=== PATIENT | male | born 1940 | race Caucasian/White ===

== ENCOUNTER → 2020-09-10 12:37 | Outpatient (CLI) | payer MEDICARE, OTHER, SELFPAY ==
--- NOTE | ~2020-09-10 | US_ITS ---
Corrected Report Ordering Physician corrected 09/11/2020 TRACY EXAMINATION: US renal BI DATE: 09/10/2020 13:07 INDICATION: Acute renal injury. Elevated creatinine. TECHNIQUE: Multiple ultrasound grayscale images of the kidneys were obtained. COMPARISON: CT abdomen and pelvis as well as ultrasound, both dated 06/29/2018 FINDINGS: The right kidney measures 12.8 x 6.7 x 5.7 cm. The left kidney measures 11.9 x 5.3 x 5.2 cm. Bilateral mild increased renal cortical echogenicity consistent with medical renal disease. 2.9 cm anechoic exophytic lesion at the periphery of the upper pole of the right kidney which appears to communicate via an anechoic tract with the renal sinus. Differential would include simple cyst or calyceal diverticulum. 3.0 cm anechoic cyst at the upper pole of the left kidney. 10 mm hypoechoic lesion along the periphery of the lower pole of the left kidney most likely an additional cyst but too small to definitively characterize. There is no hydronephrosis in either kidney. No stones identified. The bladder is partially decompressed which limits evaluation. Near the bladder and the left lower quadrant is a 5.4 cm well-defined anechoic lesion which appears to correspond on the prior CT with the reservoir for a penile implant. IMPRESSION: 1. Mild increased bilateral renal cortical echogenicity consistent with medical renal disease. No hydronephrosis. 2. Bilateral anechoic renal cysts measuring 3.0 cm on the left and 2.9 cm on the right with additional 10 mm likely left renal cyst which is too small to definitively characterize. Reviewed, dictated and finalized at location A. MTDD IMPRESSION: 1. Mild increased bilateral renal cortical echogenicity consistent with medica l renal disease. No hydronephrosis. 2. Bilateral anechoic renal cysts measuring 3.0 cm on the left and 2.9 cm on th e right with additional 10 mm likely left renal cyst which is too small to defi nitively characterize.
== END ==
PROVIDERS: PCP Internal Medicine
DX: N17.9 Acute kidney failure, unspecified (principal)
CPT/HCPCS: 76775

== ENCOUNTER 2021-07-25 09:05 | Emergency (ER) | payer MEDICARE, SELFPAY ==
[2021-07-25 09:08] VITALS: BP 172/76; PULSE 97; RESP 18; TEMP 36.6; O2SAT 97
--- NOTE | 2021-07-25 10:04 | ED.GENADULT ---
HPI - General Adult General Chief complaint: Extremity Injury, Upper Stated complaint: ripped tendon in arm Time Seen by Provider: 07/25/21 09:25 Source: patient and family History of Present Illness HPI narrative: 80-year-old male presented emerged department for evaluation of left upper arm pain. Patient states that approximately 10 days ago he had onset of left arm pain but denies any incident of injury. Patient states that last night he began having increased pain and does have bruising of the left upper extremity. Patient is not on any blood thinners. Patient denies any falls or injuries. Patient does have a history of biceps tendon tear on the right. Related Data Allergies Allergy/AdvReac Type Severity Reaction Status Date / Time No Known Drug Allergies Allergy Unknown Verified 06/29/18 10:27 Review of Systems Review of Systems: CONSTITUTIONAL: Denies fever, chills, or sweats. EYES: Denies visual changes, redness, or discharge. ENT: Denies rhinorrhea, congestion, sore throat, or otalgia. CARDIOVASCULAR: Denies chest pain, palpitations, or edema. RESPIRATORY: Denies cough or dyspnea. GASTROINTESTINAL: Denies abdominal pain, nausea, vomiting, or diarrhea. GENITOURINARY: Denies dysuria or hematuria. SKIN: Denies rash or itching. MUSCULOSKELETAL: See HPI NEUROLOGIC: Denies headache, numbness, or weakness. Exam Narrative: APPEARANCE: Well appearing, no pain, no distress, well-nourished. HEAD: normocephalic, atraumatic. EYES: PERRLA/EOMI, conjunctivae clear. NECK: Supple. No adenopathy, no masses. RESPIRATORY: Airway patent, respirations nonlabored. Clear to auscultation bilaterally, no rales, rhonchi, wheezing. CARDIOVASCULAR: Regular rate and rhythm without murmurs rubs or gallops. ABDOMINAL: Soft, nontender, nondistended, normal bowel sounds MUSCULOSKELETAL: Left upper extremity ecchymosis and tenderness. Patient does still have flexion of the left arm. Biceps tendon is palpated NEURO: Alert. Cranial nerves II through XII intact. Good gait. Good coordination SKIN: Warm, dry. Normal Color PSYCHIATRIC: Normal affect/mood. Course Course Emergency Course: Case was discussed with Dr. Francisco and he will see the patient as outpatient. Patient was placed in a sling. Patient and are comfortable with the plan for discharge and follow-up. Vital Signs Vital signs: Vital Signs Temperature 97.8 F 07/25/21 09:08 Pulse Rate 97 07/25/21 09:08 Respiratory Rate 18 07/25/21 09:08 Blood Pressure 172/76 H 07/25/21 09:08 Pulse Oximetry 97 07/25/21 09:08 Temperature 97.8 F 07/25/21 09:08 Pulse Rate 97 07/25/21 09:08 Respiratory Rate 18 07/25/21 09:08 Blood Pressure 172/76 H 07/25/21 09:08 Pulse Oximetry 97 07/25/21 09:08 Medical Decision Making Vital Signs Vital Signs: Vital Signs Temperature 97.8 F 07/25/21 09:08 Pulse Rate 97 07/25/21 09:08 Respiratory Rate 18 07/25/21 09:08 Blood Pressure 172/76 H 07/25/21 09:08 Pulse Oximetry 97 07/25/21 09:08 Temperature 97.8 F 07/25/21 09:08 Pulse Rate 97 07/25/21 09:08 Respiratory Rate 18 07/25/21 09:08 Blood Pressure 172/76 H 07/25/21 09:08 Pulse Oximetry 97 07/25/21 09:08 Discharge Plan Discharge Clinical Impression: Biceps tendon tear Patient Disposition: Home, Self-Care Condition: Stable Instructions: Antibiotic Form, How to Use a Sling (ED) Additional Instructions: [place] for pain control. Sling for comfort. Have close follow-up with orthopedics. Take MiraLAX as directed to prevent constipation from the [place]. Prescriptions: New hydrocodone-acetaminophen 5-325 mg tablet 1 tablet PO Q8H PRN (Reason: pain) Qty: 10 RF: 0 Follow-up/Referrals: Lionel,Tobias Dan MD [Primary Care Provider] - Jeff Francisco MD [Physician] -
[2021-07-25] MEDS: HYDROcodone/acetaminophen (*CRX) 5-325 MG TABLET 1 TAB PO (10:53)
== END 2021-07-25 11:08 | disposition home or self-care (01) ==
PROVIDERS: Emergency Provider Emergency Medicine; PCP Internal Medicine
DX: S46.212A Strain of muscle, fascia and tendon of other parts of biceps, left arm, initial encounter (principal); X58.XXXA Exposure to other specified factors, initial encounter
CPT/HCPCS: 99283; A4565; A9270

== ENCOUNTER 2022-06-11 14:35 | Inpatient (IN) | payer MEDICARE, SELFPAY ==
[2022-06-11] VITALS (22 sets, daily range): BP systolic 100–178; BP diastolic 49–94; PULSE 85–114; RESP 15–29; TEMP 36.5–37.2; O2SAT 92–100
--- NOTE | ~2022-06-11 | CT_ITS ---
EXAMINATION: CTA chest PE protocol DATE: 06/11/2022 17:33 INDICATION: Shortness of breath and elevated d-dimer. TECHNIQUE: Computed tomography (CT) pulmonary angiogram of the chest was performed with 100 mL Omnipa que-350 intravenous contrast. Additional 3D reconstructions utilizing coronal maximum intensity proje ction (MIP) were performed. Automated exposure control and iterative reconstruction technique were em ployed. The dose-length product was 796.74 mGy-cm. COMPARISON: None FINDINGS: Diagnostic quality study with excellent contrast opacification of the pulmonary arteries. No pulmonar y embolism. There are few small calcified nodules in the left lower lobe A few splenic calcifications consistent with old granulomatous disease. Mild dependent atelectasis in the right lower lobe. No pn e[place], pulmonary edema or pleural effusion. Mild bronchial wall thickening. Heart size is normal. S mall amount of atherosclerotic coronary artery calcific a cyst. No pericardial effusion. Aortic valve calcific location. Thoracic aorta is normal in caliber with no dissection. No pathologically enlarge d thoracic lymphadenopathy. 1.8 cm left renal cyst. There are bridging osteophytes at multiple levels in the spine, consistent with diffuse idiopathic skeletal hyperostosis (DISH). IMPRESSION: 1. No pulmonary embolism. 2. Mild bronchial wall thickening without evident pneumonia which could be due to bronchitis or react dax airway disease/asthma. Reviewed, dictated and finalized at location A. NO WORKER IMPRESSION: 1. No pulmonary embolism. 2. Mild bronchial wall thickening without evident pneumonia which could be due to bronchitis or reactive airway disease/asthma.
--- NOTE | ~2022-06-11 | XR_ITS ---
EXAMINATION: XR chest 2V DATE: 06/11/2022 15:20 INDICATION: Shortness of breath TECHNIQUE: frontal and lateral views of the chest were obtained. COMPARISON: Chest radiograph dated 09/30/2017 FINDINGS: Patient is rotated slightly towards the right. The lungs remain clear with no focal airspace opacitie s, pulmonary edema, pleural effusion or pneumothorax. Heart size is normal. IMPRESSION: 1. No acute cardiopulmonary disease. Reviewed, dictated and finalized at location A. [place] WIRELESS ASSOCIATE
--- NOTE | ~2022-06-11 | US_ITS ---
EXAMINATION: US venous doppler [facility] DATE: 06/11/2022 17:48 INDICATION: Lower limb swelling TECHNIQUE: Grayscale ultrasound images without and with compression and Doppler ultrasound images of the bilateral lower extremity veins were obtained. COMPARISON: None. FINDINGS: The visualized portions of right common femoral vein, profunda (deep) femoral vein, femoral vein, pop liteal vein, posterior tibial veins, peroneal veins, gastrocnemius vein and greater saphenous vein ou tflow are patent. The visualized portions of left common femoral vein, profunda femoral vein, femoral vein, popliteal v ein, posterior tibial veins, peroneal veins, gastrocnemius vein and greater saphenous vein outflow ar e patent. IMPRESSION: 1. No deep venous thrombosis in either lower limb. Reviewed, dictated and finalized at location A. 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
--- NOTE | 2022-06-11 14:46 | ECG_ITS ---
Measurements Intervals [place] Rate: 84 P: 73 WI: 234 QRS: 10 QRSD: 96 T: 57 QT: 332 QTc: 393 Interpretive Statements SINUS RHYTHM WITH SINUS ARRHYTHMIA WITH FIRST DEGREE AV BLOCK BORDERLINE ECG NO PREVIOUS ECG AVAILABLE FOR COMPARISON Electronically Signed On 06-11-2022 15:01:15 FILM OR VIDEOTAPE EDITOR by Prashanth Doshi D.O.
[2022-06-11 15:06] LABS: Basophils Percent Auto 0.3 % (0.2-1.2); Eosinophils Absolute Auto 0.1 K/mm3 (0-0.3); Hematocrit 41.8 % (42.0-52.0); Hemoglobin 13.4 g/dL (14.0-18.0); Immature Granulocyte Percent A 1.2 % (0-0.5); Lymphocytes Absolute Auto 1.06 K/mm3 (0.9-3.2); Lymphocytes Percent Auto 12.2 % (18.3-44.2); Mean Corpuscular HGB Conc 32.1 g/dl (32-36); Mean Corpuscular Hemoglobin 29.4 pg (26-34); Mean Corpuscular Volume 91.7 fl (80-100); Mean Platelet Volume 9.2 fl (7.4-10.4); Monocytes Absolute Auto 1.5 K/mm3 (0.1-0.6); Monocytes Percent Auto 16.7 % (2.6-8.5); Neutrophils Percent Auto 68.6 % (45.5-73.1); Platelet Count Result 326 k/mm3 (150-375); Red Blood Count 4.56 M/mm3 (4.6-6.20); Red Cell Distribution Width 13.7 % (11.5-14.5); White Blood Count 8.7 K/mm3 (4.5-10.0)
--- NOTE | 2022-06-11 15:14 | ED.SOB ---
HPI - SOB/Dyspnea General Chief Complaint: Shortness of Breath/Dyspnea <Jeannie Baron PA-C - Last Filed: 06/11/22 18:36> Stated Complaint: cough/cold/congestion <SHASTA Singh Last Filed: 06/11/22 18:36> Time Seen by Provider: 06/11/22 14:47 <Jeannie Baron PA-C - Last Filed: 06/11/22 18:36> Source: patient and family <Jeannie Baron PA-C - Last Filed: 06/11/22 18:36> Mode of arrival: ambulatory <SHASTA Singh Last Filed: 06/11/22 18:36> Limitations: no limitations <Jeannie Baron PA-C - Last Filed: 06/11/22 18:36> History of Present Illness HPI Narrative: This is a 81 year old male that presents to the ER for shortness of breath ongoing since yesterday. Associated with wheezing and productive cough. Reports feeling achy and having some back pain yesterday. 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 Denies chest pain. <Jeannie Baron PA-C - Last Filed: 06/11/22 18:36> Related Data Home Medications: Home Medications Medication Instructions Recorded Confirmed abiraterone 250 mg tablet mg PO 06/11/22 amlodipine 2.5 mg tablet mg 06/11/22 carvedilol 12.5 mg tablet mg 06/11/22 insulin aspart U-100 100 unit/mL subcut 06/11/22 (3 mL) subcutaneous pen (Novolog FlexPen U-100 Insulin aspart) insulin glargine 100 unit/mL (3 unit subcut 06/11/22 mL) subcutaneous pen (Lantus Solostar U-100 Insulin) lisinopril 20 mg tablet mg 06/11/22 oxycodone 5 mg tablet mg 06/11/22 pantoprazole 40 mg tablet,delayed mg PO 06/11/22 release pravastatin 20 mg tablet mg 06/11/22 prednisone 5 mg tablet mg 06/11/22 sitagliptin phosphate 25 mg tablet mg 06/11/22 (Januvia) timolol maleate 0.5 % eye gel 06/11/22 forming solution <Jeannie Baron PA-C - Last Filed: 06/11/22 18:36> Allergies/Adverse Reactions: Allergies Allergy/AdvReac Type Severity Reaction Status Date / Time No Known Drug Allergies Allergy Unknown Other Verified 06/11/22 14:57 <Jeannie Baron PA-C - Last Filed: 06/11/22 18:36> Review of Systems Review of Systems: CONSTITUTIONAL: Denies fever ENT: Reports congestion CARDIOVASCULAR: Denies chest pain, palpitations RESPIRATORY: Reports cough and dyspnea. GASTROINTESTINAL: Denies abdominal pain, nausea, vomiting MUSCULOSKELETAL: Reports back pain, and myalgia. <Jeannie Baron PA-C - Last Filed: 06/11/22 18:36> All systems reviewed & are unremarkable except as noted in HPI and below <Jeannie Baron PA-C - Last Filed: 06/11/22 18:36> PMFSH Past Medical History Medical History: Medical History (Updated 06/11/22 @ 18:36 by Jeannie Baron PA-C) History of diabetes mellitus History of gastroesophageal reflux (GERD) History of hyperlipidemia History of hypertension History of prostate cancer <Jeannie Baron PA-C - Last Filed: 06/11/22 18:36> Social History Social History: Social History (Updated 06/11/22 @ 15:49 by Jeannie Baron PA-C) Smoking status: Current some day smoker <Jeannie Baron PA-C - Last Filed: 06/11/22 18:36> Exam Narrative: GENERAL: Well-appearing, well-nourished, and in no acute distress. HEAD: Normocephalic, atraumatic. EYES: EOMI. ENT: Nares clear, no rhinorrhea or epistaxis. Mucous membranes moist. Oropharynx without tonsillar hypertrophy exudate or other lesions. Bilateral TMs pearly samuel non-bulging NECK: Supple. No adenopathy or masses. CHEST: No respiratory distress. Diffuse expiratory wheezing. No rales or rhonchi HEART: Regular rate and rhythm. No murmur heard. Normal peripheral pulses. ABDOMEN: Soft, nontender, nondistended, normal active bowel sounds. EXTREMITIES: Normal range of motion. 1+ pitting edema to the bilateral lower extremities (R>L) SKIN: Warm, dry, no rash. NEURO: No focal deficits. Alert and oriented x3. PSYCH: Normal mood and affect <Jeannie Baron PA-C - Last Filed: 06/11/22 18:36> Course Course Em
[2022-06-11 15:34] LABS: Alanine Aminotransferase 20 U/L (6-50); Albumin Level 4.2 g/dL (3.5-5.1); Alkaline Phosphatase 122 U/L (38-126); Anion Gap 7 mmol/L (8-16); Aspartate Amino Transferase 24 U/L (17-59); Bilirubin,Total 0.7 mg/dL (0.2-1.3); Blood Urea Nitrogen 29 mg/dL (9-20); Calcium 9.4 mg/dL (8.4-10.2); Carbon Dioxide 29 mmol/L (22-30); Chloride 97 mmol/L (98-107); Estimated Glomerular Filt Rate 36; Glucose 96 mg/dL (65-110); Potassium 3.8 mmol/L (3.4-5.0); Sodium 133 mmol/L (137-145)
[2022-06-11 15:41] LABS: Influenza A QL RT-PCR Negative (Negative); Influenza B QL RT-PCR Negative (Negative); RSV RNA, RT-PCR Negative (Negative); SARS-CoV-2 RNA PCR Positive
[2022-06-11] MEDS: ALBUTEROL SULFATE NEB 2.5 MG/3 ML INH INHALATION ×2 (15:51→20:00)
[2022-06-11] MEDS: IPRATROPIUM BR 0.02% INH SOLN 0.5 MG/2.5 ML VIAL INHALATION ×2 (15:51→20:26)
[2022-06-11 15:56] LABS: Alveolar/Arterial O2 Gradient 40.6 mmHg; Base Excess ABG 4.2 mEq/l (+/-2.0); Fractional Inspired Oxygen 21 %; HCO3 ABG 28.5 mEq/l (22.0-26.0); Methemoglobin ABG 0.1 %THb (0-1.5); Oxygen Content ABG 17.3 %vol (16.0-22.0); Oxygen Saturation ABG 91.8 % (95.0-100.0); Oxyhemoglobin 90.4 % THb (90.0-100.0); PCO2 ABG 41.7 mmHg (35.0-45.0); PO2 ABG 59.2 mmHg (80.0-100.0); PO2 FiO2 Ratio Arterial Blood 2.82 %; Reduced Hemoglobin 8.5 %THb (0-5.0); Total Hemoglobin 13.6 g/dL (12.0-18.0); pH ABG 7.453 (7.350-7.450)
[2022-06-11 15:58] LABS: Modified Allen's Test Pass; Site Drawn LEFT RADIAL
[2022-06-11 16:15] LABS: Partial Thromboplastin Time 29.2 SECONDS (22.3-36.8)
[2022-06-11 16:30] LABS: D Dimer 0.59 ug/mL (<0.48)
[2022-06-11] MEDS: SODIUM CHLORIDE 0.9% IV 500 ML 999 ML IV CONT (18:16)
--- NOTE | 2022-06-11 19:19 | PC.NURSE ---
Assumed pt care from Claudia Frias RN. Attempted to call report. MARTIN Anderson currently getting report on her other pts.
--- NOTE | 2022-06-11 19:51 | PC.NURSE ---
Attempted to call report @ [phone]. Sat on hold for 8 minutes before attempting again.
[2022-06-11 20:35] LABS: Glucose Point of Care 121 mg/dl (65-105)
--- NOTE | 2022-06-11 23:45 | PM.IMHP ---
H&P: HPI History of Present Illness Date/Time: 06/11/22 23:45 Chief Complaint: Shortness of breath. Narrative: This is a pleasant 81-year-old gentleman with COPD, metastatic prostate cancer, paroxysmal atrial fibrillation, hyperlipidemia, and type 2 diabetes mellitus who presented to the emergency department from home for evaluation of shortness of breath. Patient provides the following history. He has not felt well for a couple of days with mild shortness of breath, wheezing, cough productive of clear phlegm, runny nose, generalized aches, and back discomfort. He has not had any sick contacts to his knowledge and he denies fever, chills, and sweats. Appetite has been okay and he denies nausea, vomiting, and diarrhea. He has not had chest or pleuritic pain. He was afebrile on arrival to the emergency department. Pertinent labs include a WBC count of 8.7, sodium 133, potassium 3.8, BUN 29, creatinine 1.80. He tested positive for COVID. CT of the chest showed no evidence of pulmonary embolism but did demonstrate mild bronchial wall thickening without evident pneumonia which could be due to bronchitis or reactive airway disease/asthma. Given his comorbidities and oxygen at the lower end of normal, he is being admitted in this setting for close monitoring as he is at higher risk for developing complications from COVID. Review of Systems Review of Systems: Twelve systems were reviewed and are negative except for as per HPI. 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 Code status: Full code. Smoking status: Former smoker Additional living arrangements comments: Lives with spouse in [place]. Additional occupation/education comments: Retired. Meds Home Medications and Allergies Home Medications Medication Instructions Recorded Confirmed Type hydrocodone 5 mg-acetaminophen 325 1 tablet PO Q8H PRN pain #10 tabs 07/25/21 06/11/22 Rx mg tablet abiraterone 250 mg tablet (Zytiga) See Rx Instructions .Route .COMPLEX 06/11/22 06/11/22 History amlodipine 2.5 mg tablet (Norvasc) 2.5 mg PO DAILY 06/11/22 06/11/22 History carvedilol 12.5 mg tablet 12.5 mg PO BID 06/11/22 06/11/22 History insulin aspart U-100 100 unit/mL See Protocol subcut TID 06/11/22 06/11/22 History (3 mL) subcutaneous pen (Novolog FlexPen U-100 Insulin aspart) insulin glargine 100 unit/mL (3 See Rx Instructions .Route .COMPLEX 06/11/22 06/11/22 History mL) subcutaneous pen (Lantus Solostar U-100 Insulin) lisinopril 20 mg tablet (Zestril) 20 mg PO DAILY 06/11/22 06/11/22 History oxycodone 5 mg tablet 5 mg PO PRN 06/11/22 06/11/22 History pantoprazole 40 mg tablet,delayed 40 mg PO DAILY 06/11/22 06/11/22 History release pravastatin 20 mg tablet 20 mg PO DAILY 06/11/22 06/11/22 History prednisone 5 mg tablet 5 mg PO DAILY 06/11/22 06/11/22 History sitagliptin phosphate 25 mg tablet 25 mg PO DAILY 06/11/22 06/11/22 History (Januvia) timolol maleate 0.5 % eye gel 1 drp EACH EYE BID 06/11/22 06/11/22 History forming solution Allergies Allergy/AdvReac Type Severity Reaction Status Date / Time No Known Drug Allergies Allergy Unknown Other Verified 06/11/22 14:57 Vital Signs Vital Signs - 24 hr 06/11/22 14:
[2022-06-12] VITALS (21 sets, daily range): BP systolic 130–165; BP diastolic 72–88; PULSE 67–97; RESP 14–20; TEMP 36.5–36.6; O2SAT 96–98; BMI 29.8
[2022-06-12] MEDS: REMDESIVIR 200 MG/NS 250 ML 200 MG/250 ML BAG 250 MG IVPB (01:30)
[2022-06-12] MEDS: SODIUM CHLORIDE 0.9% IV 1,000 ML 100 ML IV CONT (01:31)
[2022-06-12] MEDS: IPRATROPIUM BR 0.02% INH SOLN 0.5 MG/2.5 ML VIAL INHALATION ×3 (02:18→14:00)
[2022-06-12] MEDS: ALBUTEROL SULFATE NEB 2.5 MG/3 ML INH INHALATION ×3 (02:18→13:59)
[2022-06-12 05:27] LABS: Hematocrit 39.7 % (42.0-52.0); Hemoglobin 12.6 g/dL (14.0-18.0); Mean Corpuscular HGB Conc 31.7 g/dl (32-36); Mean Corpuscular Hemoglobin 28.8 pg (26-34); Mean Corpuscular Volume 90.6 fl (80-100); Mean Platelet Volume 9.1 fl (7.4-10.4); Platelet Count Result 280 k/mm3 (150-375); Red Blood Count 4.38 M/mm3 (4.6-6.20); Red Cell Distribution Width 13.5 % (11.5-14.5); White Blood Count 6.1 K/mm3 (4.5-10.0)
[2022-06-12 05:43] LABS: Alanine Aminotransferase 20 U/L (6-50); Albumin Level 3.6 g/dL (3.5-5.1); Alkaline Phosphatase 98 U/L (38-126); Anion Gap 7 mmol/L (8-16); Aspartate Amino Transferase 27 U/L (17-59); Bilirubin,Total 0.5 mg/dL (0.2-1.3); Blood Urea Nitrogen 33 mg/dL (9-20); Calcium 8.6 mg/dL (8.4-10.2); Carbon Dioxide 26 mmol/L (22-30); Chloride 97 mmol/L (98-107); Estimated CRCL calculation 30 ml/min; Estimated Glomerular Filt Rate 34; Glucose 191 mg/dL (65-110); Potassium 4.6 mmol/L (3.4-5.0); Sodium 130 mmol/L (137-145)
[2022-06-12 05:57] LABS: Hemoglobin A1C 8.4 % (<5.7)
[2022-06-12 08:53] LABS: Glucose Point of Care 212 mg/dl (65-105)
[2022-06-12] MEDS: INSULIN ASPART (*BKC) 100 UNITS/ML SUB-Q ×3 (09:13→17:17)
[2022-06-12] MEDS: ENOXAPARIN 40 MG/0.4 ML SYRINGE SUB-Q (09:14)
[2022-06-12] MEDS: carvediloL 12.5 MG TABLET PO ×2 (09:14→20:57)
[2022-06-12] MEDS: PRAVASTATIN SODIUM 20 MG TABLET PO (09:15)
[2022-06-12] MEDS: predniSONE 5 MG TABLET PO ×2 (09:18→17:15)
[2022-06-12] MEDS: INSULIN GLARGINE (*BKC) 100 UNITS/ML 28 UNITS SUB-Q (09:21)
[2022-06-12] MEDS: lisinopriL 20 MG TABLET PO (09:21)
[2022-06-12] MEDS: PANTOPRAZOLE 40 MG TABLET PO (09:21)
[2022-06-12 09:24] LABS: NT Pro B Type Natriuretic Pept 2220 pg/mL (19.9-100)
[2022-06-12] MEDS: TIMOLOL MALEATE XE 0.5% OPHTH GEL SOLN 5 ML BTL 1 DROP EACH EYE ×2 (09:32→20:57)
[2022-06-12] MEDS: amLODIPine BESYLATE 2.5 MG TABLET PO (09:32)
[2022-06-12 12:14] LABS: Glucose Point of Care 276 mg/dl (65-105)
--- NOTE | 2022-06-12 14:24 | PHAR ---
Home medication identified in Pharmacy Abiraterone 250mg tablets and returned to RN at Pharmacy window
--- NOTE | 2022-06-12 15:00 | P.PNIM_ITS ---
Progress Note: A&P Assessment and Plan (1) COVID-19: Code(s): U07.1 - COVID-19 Status: Acute Assessment and Plan: * presented to the emergency department for shortness of breath, wheezing, cough, and body aches * Chest xray showed no acute cardiopulmonary disease * CTA: no pulmonary embolism, mild bronchial wall thickening without PNA, indicating bronchitis or reactive airway disease * positive for COVID-19 * Requiring oxygen supplementation, wean to maintain saturation >90% * Continue dexamethasone and remdesivir * Continue scheduled bronchodilators * Weaned to room air (2) Chronic obstructive pulmonary disease: Code(s): J44.9 - Chronic obstructive pulmonary disease, unspecified Status: Acute Assessment and Plan: * HX of COPD * Active wheezing, shortness of breath, changes in cough and sputum * Covid positive * Most likely activated by COVID * Supplemental oxygen needs, wean to maintain saturation >90% * Appears to be in acute exacerbation * Continue neb treatments (3) Chronic kidney disease, stage 3: Code(s): N18.30 - Chronic kidney disease, stage 3 unspecified Status: Acute Assessment and Plan: * BUN/Cr elevated at 33/1.90 * Appears to most likely at his baseline * Baseline Creatinine is 1.70-1.90 * Continue to trend labs * Hold chlorthalidone for now * Avoid nephrotoxic medications * IV fluids given (4) Paroxysmal atrial fibrillation: Code(s): I48.0 - Paroxysmal atrial fibrillation Status: Acute Assessment and Plan: * HR stable and controlled * Continue carvedilol * ChadVas score is a 4 * Consider starting anticoagulation (5) Prostate cancer metastatic to bone: Code(s): C61 - Malignant neoplasm of prostate; C79.51 - Secondary malignant neoplasm of bone Status: Acute Assessment and Plan: * Stable * Continue home medications * Continue outpatient follow up (6) Hypertension: Code(s): I10 - Essential (primary) hypertension Status: Acute Assessment and Plan: * BP is 145/72 * Hold Chlorthalidone for now * Continue lisinopril, carvedilol, amlodipine * Trend BP * Adjust therapy as indicated (7) Type 2 diabetes mellitus: Code(s): E11.9 - Type 2 diabetes mellitus without complications Status: Acute Assessment and Plan: * Glucose is only 191 * resume basal insulin * sliding scale insulin * Accu-Cheks * hypoglycemic protocol * Trend glucose * adjust therapy as indicated Time Spent With Patient Time: 51 minutes Subjective Date/time seen: 06/12/22 15:00 Interval history: 06/12/22 1500 Patient stated that he is doing ok. he currently denies any chest pain, shortness of breath, nausea, and vomiting. Turned off his oxygen, informed the nurse to check SPO2 in 15 minute. Currently, he stated that he is feeling better. He denies any current problems with breathing or cough. 06/11/22? 23:45 This is a pleasant 81-year-old gentleman with COPD, metastatic prostate cancer, paroxysmal atrial fibrillation, hyperlipidemia, and type 2 diabetes mellitus who presented to the emergency department from
--- NOTE | 2022-06-12 15:00 | PM.IMPN ---
Progress Note: A&P Assessment and Plan (1) COVID-19: Code(s): U07.1 - COVID-19 Status: Acute Assessment and Plan: presented to the emergency department for shortness of breath, wheezing, cough, and body aches Chest xray showed no acute cardiopulmonary disease CTA: no pulmonary embolism, mild bronchial wall thickening without PNA, indicating bronchitis or reactive airway disease positive for COVID-19 Requiring oxygen supplementation, wean to maintain saturation >90% Continue dexamethasone and remdesivir Continue scheduled bronchodilators Weaned to room air (2) Chronic obstructive pulmonary disease: Code(s): J44.9 - Chronic obstructive pulmonary disease, unspecified Status: Acute Assessment and Plan: HX of COPD Active wheezing, shortness of breath, changes in cough and sputum Covid positive Most likely activated by COVID Supplemental oxygen needs, wean to maintain saturation >90% Appears to be in acute exacerbation Continue neb treatments (3) Chronic kidney disease, stage 3: Code(s): N18.30 - Chronic kidney disease, stage 3 unspecified Status: Acute Assessment and Plan: BUN/Cr elevated at 33/1.90 Appears to most likely at his baseline Baseline Creatinine is 1.70-1.90 Continue to trend labs Hold chlorthalidone for now Avoid nephrotoxic medications IV fluids given (4) Paroxysmal atrial fibrillation: Code(s): I48.0 - Paroxysmal atrial fibrillation Status: Acute Assessment and Plan: HR stable and controlled Continue carvedilol ChadVas score is a 4 Consider starting anticoagulation (5) Prostate cancer metastatic to bone: Code(s): C61 - Malignant neoplasm of prostate; C79.51 - Secondary malignant neoplasm of bone Status: Acute Assessment and Plan: Stable Continue home medications Continue outpatient follow up (6) Hypertension: Code(s): I10 - Essential (primary) hypertension Status: Acute Assessment and Plan: BP is 145/72 Hold Chlorthalidone for now Continue lisinopril, carvedilol, amlodipine Trend BP Adjust therapy as indicated (7) Type 2 diabetes mellitus: Code(s): E11.9 - Type 2 diabetes mellitus without complications Status: Acute Assessment and Plan: Glucose is only 191 resume basal insulin sliding scale insulin Accu-Cheks hypoglycemic protocol Trend glucose adjust therapy as indicated Time Spent With Patient Time: 51 minutes Subjective Date/time seen: 06/12/22 15:00 Interval history: 06/12/22 1500 Patient stated that he is doing ok. he currently denies any chest pain, shortness of breath, nausea, and vomiting. Turned off his oxygen, informed the nurse to check SPO2 in 15 minute. Currently, he stated that he is feeling better. He denies any current problems with breathing or cough. 06/11/22? 23:45 This is a pleasant 81-year-old gentleman with COPD, metastatic prostate cancer, paroxysmal atrial fibrillation, hyperlipidemia, and type 2 diabetes mellitus who presented to the emergency department from home for evaluation of shortness of breath. Patient provides the following history. He has not felt well for a couple of days with mild shortness of breath, wheezing, cough productive of clear phlegm, runny nose, generalized aches, and back discomfort. He has not had any sick contacts to his knowledge and he denies fever, chills, and sweats. Appetite has been okay and he denies nausea, vomiting, and diarrhea. He has not had chest or pleuritic pain. He was afebrile on arrival to the emergency department. Pertinent labs include a WBC count of 8.7, sodium 133, potassium 3.8, BUN 29, creatinine 1.80. He tested positive for COVID. CT of the chest showed no evidence of pulmonary embolism but did demonstrate
[2022-06-12 17:17] LABS: Glucose Point of Care 346 mg/dl (65-105)
[2022-06-12] MEDS: REMDESIVIR 100 MG/NS 250 ML 100 MG/250 ML BAG 250 MG IVPB (21:00)
[2022-06-12 21:27] LABS: Glucose Point of Care 320 mg/dl (65-105)
[2022-06-13] VITALS (11 sets, daily range): BP systolic 142–148; BP diastolic 66–72; PULSE 56–83; RESP 14–20; TEMP 36.7–36.8; O2SAT 94–97
[2022-06-13 05:43] LABS: Basophils Percent Auto 0.1 % (0.2-1.2); Hematocrit 36.1 % (42.0-52.0); Hemoglobin 11.8 g/dL (14.0-18.0); Immature Granulocyte Absolute 0.06 K/mm3 (0.00-0.031); Immature Granulocyte Percent A 0.6 % (0-0.5); Lymphocytes Absolute Auto 0.85 K/mm3 (0.9-3.2); Lymphocytes Percent Auto 8.4 % (18.3-44.2); Mean Corpuscular HGB Conc 32.7 g/dl (32-36); Mean Corpuscular Hemoglobin 28.8 pg (26-34); Mean Platelet Volume 9.6 fl (7.4-10.4); Monocytes Absolute Auto 0.8 K/mm3 (0.1-0.6); Monocytes Percent Auto 8.3 % (2.6-8.5); Neutrophils Absolute Auto 8.3 K/mm3 (1.3-6.7); Neutrophils Percent Auto 82.6 % (45.5-73.1); Platelet Count Result 301 k/mm3 (150-375); Red Cell Distribution Width 13.5 % (11.5-14.5); White Blood Count 10.1 K/mm3 (4.5-10.0)
[2022-06-13 05:55] LABS: Prothrombin Time 12.8 Seconds (11.1-14.7)
[2022-06-13] MEDS: carvediloL 12.5 MG TABLET PO (05:56)
[2022-06-13 06:06] LABS: Alanine Aminotransferase 21 U/L (6-50); Albumin Level 3.5 g/dL (3.5-5.1); Alkaline Phosphatase 94 U/L (38-126); Anion Gap 7 mmol/L (8-16); Aspartate Amino Transferase 24 U/L (17-59); Bilirubin,Total 0.4 mg/dL (0.2-1.3); Blood Urea Nitrogen 50 mg/dL (9-20); Calcium 8.3 mg/dL (8.4-10.2); Carbon Dioxide 25 mmol/L (22-30); Chloride 101 mmol/L (98-107); Estimated CRCL calculation 30 ml/min; Estimated Glomerular Filt Rate 34; Glucose 216 mg/dL (65-110); Magnesium 1.5 mg/dL (1.6-2.3); Sodium 133 mmol/L (137-145)
--- NOTE | 2022-06-13 07:36 | P.PNIM_ITS ---
Progress Note: A&P Assessment and Plan (1) COVID-19: Code(s): U07.1 - COVID-19 Status: Acute Assessment and Plan: * presented to the emergency department for shortness of breath, wheezing, cough, and body aches * Chest xray showed no acute cardiopulmonary disease * CTA: no pulmonary embolism, mild bronchial wall thickening without PNA, indicating bronchitis or reactive airway disease * positive for COVID-19 * Requiring oxygen supplementation, wean to maintain saturation >90% * Continue dexamethasone and remdesivir * Continue scheduled bronchodilators * Weaned to room air (2) Chronic obstructive pulmonary disease: Code(s): J44.9 - Chronic obstructive pulmonary disease, unspecified Status: Acute Assessment and Plan: * HX of COPD * Active wheezing, shortness of breath, changes in cough and sputum * Covid positive * Most likely activated by COVID * Supplemental oxygen needs, wean to maintain saturation >90% * Appears to be in acute exacerbation * Continue neb treatments (3) Chronic kidney disease, stage 3: Code(s): N18.30 - Chronic kidney disease, stage 3 unspecified Status: Acute Assessment and Plan: * BUN/Cr elevated at 50/1.90 * Appears to most likely at his baseline * Baseline Creatinine is 1.70-1.90 * Continue to trend labs * Hold chlorthalidone for now * Avoid nephrotoxic medications * IV fluids given (4) Paroxysmal atrial fibrillation: Code(s): I48.0 - Paroxysmal atrial fibrillation Status: Acute Assessment and Plan: * HR stable and controlled * Continue carvedilol * ChadVas score is a 4 * Consider starting anticoagulation (5) Prostate cancer metastatic to bone: Code(s): C61 - Malignant neoplasm of prostate; C79.51 - Secondary malignant neoplasm of bone Status: Acute Assessment and Plan: * Stable * Continue home medications * Continue outpatient follow up (6) Hypertension: Code(s): I10 - Essential (primary) hypertension Status: Acute Assessment and Plan: * BP is 145/72 * Hold Chlorthalidone for now * Continue lisinopril, carvedilol, amlodipine * Trend BP * Adjust therapy as indicated (7) Type 2 diabetes mellitus: Code(s): E11.9 - Type 2 diabetes mellitus without complications Status: Acute Assessment and Plan: * Glucose is only 216 * resume basal insulin * sliding scale insulin * Accu-Cheks * hypoglycemic protocol * Trend glucose * adjust therapy as indicated Time Spent With Patient Time: 48 minutes Time with patient: Greater than 35 minutes Subjective Date/time seen: 06/13/22 07:36 Interval history: 06/13/22 06/12/22 1500 Patient stated that he is doing ok. he currently denies any chest pain, shortness of breath, nausea, and vomiting. Turned off his oxygen, informed the nurse to check SPO2 in 15 minute. Currently, he stated that he is feeling better. He denies any current problems with breathing or cough. 06/11/22? 23:45 This is a pleasant 81-year-old gentleman with COPD, metastatic prostate cancer, paroxysmal atrial fibrillation, hyperlipidemia
--- NOTE | 2022-06-13 07:36 | PM.IMPN ---
Progress Note: A&P Assessment and Plan (1) COVID-19: Code(s): U07.1 - COVID-19 Status: Acute Assessment and Plan: presented to the emergency department for shortness of breath, wheezing, cough, and body aches Chest xray showed no acute cardiopulmonary disease CTA: no pulmonary embolism, mild bronchial wall thickening without PNA, indicating bronchitis or reactive airway disease positive for COVID-19 Requiring oxygen supplementation, wean to maintain saturation >90% Continue dexamethasone and remdesivir Continue scheduled bronchodilators Weaned to room air (2) Chronic obstructive pulmonary disease: Code(s): J44.9 - Chronic obstructive pulmonary disease, unspecified Status: Acute Assessment and Plan: HX of COPD Active wheezing, shortness of breath, changes in cough and sputum Covid positive Most likely activated by COVID Supplemental oxygen needs, wean to maintain saturation >90% Appears to be in acute exacerbation Continue neb treatments (3) Chronic kidney disease, stage 3: Code(s): N18.30 - Chronic kidney disease, stage 3 unspecified Status: Acute Assessment and Plan: BUN/Cr elevated at 50/1.90 Appears to most likely at his baseline Baseline Creatinine is 1.70-1.90 Continue to trend labs Hold chlorthalidone for now Avoid nephrotoxic medications IV fluids given (4) Paroxysmal atrial fibrillation: Code(s): I48.0 - Paroxysmal atrial fibrillation Status: Acute Assessment and Plan: HR stable and controlled Continue carvedilol ChadVas score is a 4 Consider starting anticoagulation (5) Prostate cancer metastatic to bone: Code(s): C61 - Malignant neoplasm of prostate; C79.51 - Secondary malignant neoplasm of bone Status: Acute Assessment and Plan: Stable Continue home medications Continue outpatient follow up (6) Hypertension: Code(s): I10 - Essential (primary) hypertension Status: Acute Assessment and Plan: BP is 145/72 Hold Chlorthalidone for now Continue lisinopril, carvedilol, amlodipine Trend BP Adjust therapy as indicated (7) Type 2 diabetes mellitus: Code(s): E11.9 - Type 2 diabetes mellitus without complications Status: Acute Assessment and Plan: Glucose is only 216 resume basal insulin sliding scale insulin Accu-Cheks hypoglycemic protocol Trend glucose adjust therapy as indicated Time Spent With Patient Time: 48 minutes Time with patient: Greater than 35 minutes Subjective Date/time seen: 06/13/22 07:36 Interval history: 06/13/22 06/12/22 1500 Patient stated that he is doing ok. he currently denies any chest pain, shortness of breath, nausea, and vomiting. Turned off his oxygen, informed the nurse to check SPO2 in 15 minute. Currently, he stated that he is feeling better. He denies any current problems with breathing or cough. 06/11/22? 23:45 This is a pleasant 81-year-old gentleman with COPD, metastatic prostate cancer, paroxysmal atrial fibrillation, hyperlipidemia, and type 2 diabetes mellitus who presented to the emergency department from home for evaluation of shortness of breath. Patient provides the following history. He has not felt well for a couple of days with mild shortness of breath, wheezing, cough productive of clear phlegm, runny nose, generalized aches, and back discomfort. He has not had any sick contacts to his knowledge and he denies fever, chills, and sweats. Appetite has been okay and he denies nausea, vomiting, and diarrhea. He has not had chest or pleuritic pain. He was afebrile on arrival to the emergency department. Pertinent labs include a WBC count of 8.7, sodium 133, potassium 3.8, BUN 29, creatinine 1.80. He tested positive for COVID. CT of the chest s
[2022-06-13 08:38] LABS: Glucose Point of Care 206 mg/dl (65-105)
[2022-06-13] MEDS: PANTOPRAZOLE 40 MG TABLET PO (09:48)
[2022-06-13] MEDS: INSULIN ASPART (*BKC) 100 UNITS/ML SUB-Q ×2 (09:48→12:34)
[2022-06-13] MEDS: PRAVASTATIN SODIUM 20 MG TABLET PO (09:48)
[2022-06-13] MEDS: lisinopriL 20 MG TABLET PO (09:48)
[2022-06-13] MEDS: ENOXAPARIN 40 MG/0.4 ML SYRINGE SUB-Q (09:49)
[2022-06-13] MEDS: MAGNESIUM SULF 2 GM/WATER 50ML 2 GM/50 ML BAG IVPB (09:49)
[2022-06-13] MEDS: INSULIN GLARGINE (*BKC) 100 UNITS/ML 28 UNITS SUB-Q (09:49)
[2022-06-13] MEDS: TIMOLOL MALEATE XE 0.5% OPHTH GEL SOLN 5 ML BTL 1 DROP EACH EYE (09:50)
[2022-06-13] MEDS: amLODIPine BESYLATE 2.5 MG TABLET PO (10:05)
[2022-06-13] MEDS: ALBUTEROL SULFATE NEB 2.5 MG/3 ML INH INHALATION ×2 (10:14→14:35)
[2022-06-13] MEDS: IPRATROPIUM BR 0.02% INH SOLN 0.5 MG/2.5 ML VIAL INHALATION ×2 (10:15→14:35)
[2022-06-13] MEDS: predniSONE 5 MG TABLET PO (10:51)
--- NOTE | 2022-06-13 11:15 | P.DS_ITS ---
DS: Admitting Diagnosis Discharge Date 06/13/22 1115 Admitting Diagnosis Bronchitis/COVID DS: Discharge Diagnosis Discharge Diagnosis (1) COVID-19: Code(s): U07.1 - COVID-19 Status: Acute Assessment and Plan: * presented to the emergency department for shortness of breath, wheezing, cou gh, and body aches * Chest xray showed no acute cardiopulmonary disease * CTA: no pulmonary embolism, mild bronchial wall thickening without PNA, indicating bronchitis or reactive airway disease * positive for COVID-19 * Requiring oxygen supplementation, wean to maintain saturation >90% * Continue dexamethasone and remdesivir * Continue scheduled bronchodilators * Weaned to room air (2) Chronic obstructive pulmonary disease: Code(s): J44.9 - Chronic obstructive pulmonary disease, unspecified Status: Acute Assessment and Plan: * HX of COPD * Active wheezing, shortness of breath, changes in cough and sputum * Covid positive * Most likely activated by COVID * Supplemental oxygen needs, wean to maintain saturation >90% * Appears to be in acute exacerbation * Continue neb treatments (3) Chronic kidney disease, stage 3: Code(s): N18.30 - Chronic kidney disease, stage 3 unspecified Status: Acute Assessment and Plan: * BUN/Cr elevated at 50/1.90 * Appears to most likely at his baseline * Baseline Creatinine is 1.70-1.90 * Continue to trend labs * Hold chlorthalidone for now * Avoid nephrotoxic medications * IV fluids given (4) Paroxysmal atrial fibrillation: Code(s): I48.0 - Paroxysmal atrial fibrillation Status: Acute Assessment and Plan: * HR stable and controlled * Continue carvedilol * ChadVas score is a 4 * Consider starting anticoagulation (5) Prostate cancer metastatic to bone: Code(s): C61 - Malignant neoplasm of prostate; C79.51 - Secondary malignant neoplasm of bone Status: Acute Assessment and Plan: * Stable * Continue home medications * Continue outpatient follow up (6) Hypertension: Code(s): I10 - Essential (primary) hypertension Status: Acute Assessment and Plan: * BP is 145/72 * Hold Chlorthalidone for now * Continue lisinopril, carvedilol, amlodipine * Trend BP * Adjust therapy as indicated (7) Type 2 diabetes mellitus: Code(s): E11.9 - Type 2 diabetes mellitus without complications Status: Acute Assessment and Plan: * Glucose is only 216 * resume basal insulin * sliding scale insulin * Accu-Cheks * hypoglycemic protocol * Trend glucose * adjust therapy as indicated DS: Summary Hospital Course Hospital Course: Patient is 81-year-old male with a past medical history of COPD, metastatic prostate cancer,, AFib, hyperlipidemia, diabetes who presented the ED for evaluation shortness of breath. Patient stated that he had originally started off with having diarrhea prior to coming to hospital however it did progress into shortness of breath with wheezing, cough, congestion and general aches. Patient stated that he is always a little wheezy however this time it was worse. Upon arrival it was noted that the patient tested
--- NOTE | 2022-06-13 11:15 | PM.DS ---
DS: Admitting Diagnosis Discharge Date 06/13/22 1115 Admitting Diagnosis Bronchitis/COVID DS: Discharge Diagnosis Discharge Diagnosis (1) COVID-19: Code(s): U07.1 - COVID-19 Status: Acute Assessment and Plan: presented to the emergency department for shortness of breath, wheezing, cough, and body aches Chest xray showed no acute cardiopulmonary disease CTA: no pulmonary embolism, mild bronchial wall thickening without PNA, indicating bronchitis or reactive airway disease positive for COVID-19 Requiring oxygen supplementation, wean to maintain saturation >90% Continue dexamethasone and remdesivir Continue scheduled bronchodilators Weaned to room air (2) Chronic obstructive pulmonary disease: Code(s): J44.9 - Chronic obstructive pulmonary disease, unspecified Status: Acute Assessment and Plan: HX of COPD Active wheezing, shortness of breath, changes in cough and sputum Covid positive Most likely activated by COVID Supplemental oxygen needs, wean to maintain saturation >90% Appears to be in acute exacerbation Continue neb treatments (3) Chronic kidney disease, stage 3: Code(s): N18.30 - Chronic kidney disease, stage 3 unspecified Status: Acute Assessment and Plan: BUN/Cr elevated at 50/1.90 Appears to most likely at his baseline Baseline Creatinine is 1.70-1.90 Continue to trend labs Hold chlorthalidone for now Avoid nephrotoxic medications IV fluids given (4) Paroxysmal atrial fibrillation: Code(s): I48.0 - Paroxysmal atrial fibrillation Status: Acute Assessment and Plan: HR stable and controlled Continue carvedilol ChadVas score is a 4 Consider starting anticoagulation (5) Prostate cancer metastatic to bone: Code(s): C61 - Malignant neoplasm of prostate; C79.51 - Secondary malignant neoplasm of bone Status: Acute Assessment and Plan: Stable Continue home medications Continue outpatient follow up (6) Hypertension: Code(s): I10 - Essential (primary) hypertension Status: Acute Assessment and Plan: BP is 145/72 Hold Chlorthalidone for now Continue lisinopril, carvedilol, amlodipine Trend BP Adjust therapy as indicated (7) Type 2 diabetes mellitus: Code(s): E11.9 - Type 2 diabetes mellitus without complications Status: Acute Assessment and Plan: Glucose is only 216 resume basal insulin sliding scale insulin Accu-Cheks hypoglycemic protocol Trend glucose adjust therapy as indicated DS: Summary Hospital Course Hospital Course: Patient is 81-year-old male with a past medical history of COPD, metastatic prostate cancer,, AFib, hyperlipidemia, diabetes who presented the ED for evaluation shortness of breath. Patient stated that he had originally started off with having diarrhea prior to coming to hospital however it did progress into shortness of breath with wheezing, cough, congestion and general aches. Patient stated that he is always a little wheezy however this time it was worse. Upon arrival it was noted that the patient tested positive for COVID. CT of the chest showed no evidence of pulmonary embolism but mild bronchial wall thickening without pneumonia however bronchitis was noted on the CT. Patient was given supplemental oxygen which has been weaned to room air at this time. Patient was started on remdesivir and dexamethasone. Patient has been able to stay off the oxygen for greater than 24 hours. Creatinine is stable at 1.9 which appears to be in his baseline. Patient denies any further chest pain, shortness a breath, nausea, vomiting, diarrhea or constipation. Patient stated that he feels he is back to baseline just a little bit on the weaker side. PT and OT did evaluate the patient and stated th
[2022-06-13 12:11] LABS: Glucose Point of Care 205 mg/dl (65-105)
== END 2022-06-13 16:10 | disposition home or self-care (01) | DRG 177 ==
LOC: ANHED 18:36 → ANH2MED 19:13
PROVIDERS: Emergency Medicine; Physician Assistant; Admitting Provider Chiropractor; Emergency Provider Physician Assistant; PCP Internal Medicine; Visit Provider Nurse Practitioner
DX: U07.1 COVID-19 (principal); J96.01 Acute respiratory failure with hypoxia; J44.1 Chronic obstructive pulmonary disease with (acute) exacerbation; C79.51 Secondary malignant neoplasm of bone; I12.9 Hypertensive chronic kidney disease with stage 1 through stage 4 chronic kidney disease, or unspecified chronic kidney disease; E11.22 Type 2 diabetes mellitus with diabetic chronic kidney disease; N18.30 Chronic kidney disease, stage 3 unspecified; C61 Malignant neoplasm of prostate; I48.0 Paroxysmal atrial fibrillation; E78.5 Hyperlipidemia, unspecified; K21.9 Gastro-esophageal reflux disease without esophagitis; Z87.891 Personal history of nicotine dependence
CPT/HCPCS: 36415; 36600; 71046; 71275; 80053; 82375; 82805; 82948; 83036; 83050; 83735; 83880; 85025; 85027; 85380; 85610; 85730; 87637; 93005; 93970; 94640; 96361; 96374; 96375; 97161; 99285; A9270; G0378; J0248; J1100; J1650; J1815; J3475; J7030; J7040; J7512; Q9967

== ENCOUNTER 2023-07-26 07:22 | Inpatient (IN) | payer MEDICARE, SELFPAY ==
[2023-07-26] VITALS (28 sets, daily range): BP systolic 92–189; BP diastolic 38–84; PULSE 70–103; RESP 14–28; TEMP 36.2–36.5; O2SAT 93–100; BMI 30.4; BMI 31.4
--- NOTE | ~2023-07-26 | US_ITS ---
EXAMINATION: US renal BI DATE: 07/26/2023 15:50 INDICATION: acute kidney injury TECHNIQUE: Multiple grayscale and Doppler ultrasound images of the kidneys were obtained. COMPARISON: 09/10/2020, 06/29/2018; CT abdomen pelvis 06/29/2018 FINDINGS: The right kidney measures 12.6 x 6.6 x 5.9 cm. The left kidney measures 11.9 x 6.1 x 5.0 cm. The kidn eys demonstrate mildly increased parenchymal echogenicity. 3.2 cm exophytic anechoic lesion at the pe riphery of the right lower pole, slightly lobular contour, slight increased through transmission, wit h anechoic tract that may connect to the renal sinus. 3.1 cm left upper pole cystic lesion, mildly lo bulated contour, increased through transmission. Previous described 10 mm left lower pole lesion is n ot identified. There is no hydronephrosis. The bladder is moderately distended, likely with considera ble wall thickening. IMPRESSION: Medical renal disease. 3.2 cm right upper pole cystic mass, may represent a proteinaceous cyst or calyceal diverticulum, dem onstrating slight interval growth. 3.1 cm left upper pole lesion likely representing a simple cyst. P reviously described 10 mm left lower pole lesion is not identified. Consider MRI of the kidneys witho ut and with contrast for definitive evaluation of the right renal mass and to exclude a left lower po le renal mass. Bladder findings suggestive of cystitis, correlate with urinalysis. Reviewed, dictated and finalized at location K. IMPRESSION: Medical renal disease. 3.2 cm right upper pole cystic mass, may represent a proteinaceous cyst or nicole ceal diverticulum, demonstrating slight interval growth. 3.1 cm left upper pole lesion likely representing a simple cyst. Previously described 10 mm left lowe r pole lesion is not identified. Consider MRI of the kidneys without and with c ontrast for definitive evaluation of the right renal mass and to exclude a left lower pole renal mass. Bladder findings suggestive of cystitis, correlate with urinalysis.
--- NOTE | ~2023-07-26 | XR_ITS ---
XR chest 1V portable 07/26/2023 08:41 Indication: Dyspnea Procedure: AP portable chest Comparison: No prior studies for comparison. Findings: Borderline heart size. Mild interstitial edema. Atypical pneumonia less favored. No pleural effusion or pneumothorax. No acute osseous abnormality. Impression: 1: Mild interstitial edema. Reviewed, dictated and finalized at location B. Impression: 1: Mild interstitial edema.
--- NOTE | ~2023-07-26 | CT_ITS ---
EXAMINATION: CTA chest PE protocol DATE: 07/26/2023 09:45 CDT INDICATION: Hypoxia TECHNIQUE: Computed tomographic angiography (CTA) of the chest was performed with 100 mL Omnipaque-35 0 intravenous contrast. The dose-length product was 769.37 mGy-cm. Maximum intensity projection 3D-re constructions of the aorta and other arteries were constructed by the technologist on a separate work station. COMPARISON: None. FINDINGS: No significant pleural or pericardial effusion. Heart size normal. No thoracic lymphadenopa thy. Mild atherosclerosis. Study technically adequate without evidence for pulmonary embolism. No end obronchial lesions. No pneumothorax. There is interlobular septal thickening peripherally, right grea ter than left. There are a few areas of subpleural groundglass opacification in the right lung. IMPRESSION: 1. No pulmonary embolism. 2: Groundglass opacities subpleural location of the right thorax with interlobular septal thickening. Considerations include mild edema, atypical pneumonia and chronic interstitial lung disease. Reviewed, dictated and finalized at location B. IMPRESSION: 1. No pulmonary embolism. 2: Groundglass opacities subpleural location of the right thorax with interlobu lar septal thickening. Considerations include mild edema, atypical pneumonia an d chronic interstitial lung disease.
--- NOTE | 2023-07-26 07:28 | ECG_ITS ---
SEE SCANNED COPY FOR CONFIRMED REPORT MTDD
--- NOTE | 2023-07-26 07:39 | ED.SOB ---
HPI - SOB/Dyspnea General Chief Complaint: Shortness of Breath/Dyspnea Stated Complaint: RESP DISTRESS Limitations: physical limitation History of Present Illness HPI Narrative: HPI limited due to patient's shortness of breath. This is an 82-year-old male, with history of diabetes, metastatic prostate cancer and COPD, brought in by EMS for dyspnea. The patient reportedly developed shortness of breath beginning this morning and that progressively worsened. On arrival, EMS reports patient was hypoxic to the 70s. He was placed on CPAP with gradual improvement. Patient denies pain complains only of shortness of breath. Related Data Home Medications Medication Instructions Recorded Confirmed abiraterone 250 mg tablet (Zytiga) 1,000 mg PO DAILY 06/11/22 07/26/23 amlodipine 2.5 mg tablet (Norvasc) 2.5 mg PO DAILY 06/11/22 07/26/23 carvedilol 12.5 mg tablet 25 mg PO BID 06/11/22 07/26/23 insulin aspart U-100 100 unit/mL See Protocol subcut TID 06/11/22 07/26/23 (3 mL) subcutaneous pen (Novolog FlexPen U-100 Insulin aspart) insulin glargine 100 unit/mL (3 See Rx Instructions .Route .COMPLEX 06/11/22 07/26/23 mL) subcutaneous pen (Lantus Solostar U-100 Insulin) lisinopril 20 mg tablet (Zestril) 30 mg PO DAILY 06/11/22 07/26/23 oxycodone 5 mg tablet 5 mg PO PRN PRN Pain 06/11/22 07/26/23 pantoprazole 40 mg tablet,delayed 40 mg PO DAILY 06/11/22 07/26/23 release pravastatin 20 mg tablet 20 mg PO DAILY 06/11/22 07/26/23 prednisone 5 mg tablet 5 mg PO BID 06/11/22 07/26/23 sitagliptin phosphate 25 mg tablet 25 mg PO DAILY 06/11/22 07/26/23 (Januvia) timolol maleate 0.5 % eye gel 1 drp EACH EYE BID 06/11/22 07/26/23 forming solution chlorthalidone 25 mg PO DAILY 06/12/22 07/26/23 Allergies Allergy/AdvReac Type Severity Reaction Status Date / Time No Known Drug Allergies Allergy Unknown Other Verified 07/26/23 07:43 Review of Systems Review of Systems: All systems reviewed & are unremarkable except as noted in HPI and below (HPI) PMFSH Past Medical History Medical History Chronic kidney disease, stage 3 Esophageal ulcer Gastroesophageal reflux disease Hyperlipidemia Hypertension Paroxysmal atrial fibrillation 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 Code status: Full code. Years smoked: 62 Smoking status: Current every day smoker Tobacco type: cigarettes Second hand tobacco smoke exposure: Yes Alcohol intake: current Drinks per week: 2 Substance use: current Substance use type: marijuana Last use: 07/22/2023 Do You Feel Safe in your Home?: Yes Lack of Transportation: No Lack of Food: Never True Current Housing: I Have Housing Concerned About Future Housing: No Difficulty Paying Gas/Electric Bills: No Difficulty Paying for Meds: No Currently Unemployed: No Education: Decline to Answer Difficulty w/ Childcare or Family Care: No Additional living arrangements comments: Lives with spouse in [place]. Additional occupation/education comments: Retired. Spiritual care concerns: No Exam Narrative: GENERAL: Well-developed, well-nourished, in moderate to severe respiratory distress HEAD: Normocephalic, atraumatic. EYES: PERRLA and EOMI. ENT: Nares clear, no rhinorrhea or epistaxis. Mucous membranes moist. Oropharynx without tonsillar hypertrophy exudate or other lesions. NECK: Supple. No JVD CHEST: Tachypneic, in mod
[2023-07-26 08:08] LABS: Alanine Aminotransferase 12 U/L (6-50); Alkaline Phosphatase 126 U/L (38-126); Anion Gap 8 mmol/L (4-12); Aspartate Amino Transferase 16 U/L (17-59); Bilirubin,Total 0.8 mg/dL (0.2-1.3); Blood Urea Nitrogen 42 mg/dL (9-20); Carbon Dioxide 25 mmol/L (22-30); Chloride 108 mmol/L (98-107); Estimated CRCL calculation 24 ml/min; Estimated Glomerular Filt Rate 23; Glucose 153 mg/dL (65-110); Potassium 4.1 mmol/L (3.4-5.0); Sodium 141 mmol/L (137-145)
[2023-07-26 08:08] LABS: Alveolar/Arterial O2 Gradient 139.6 mmHg; Base Excess ABG -3.6 mEq/l (+/-2.0); Device NON-INVASIVE VENT; Fractional Inspired Oxygen 60 %; HCO3 ABG 20.4 mEq/l (22.0-26.0); Modified Allen's Test Pass; Oxygen Content ABG 18.5 %vol (16.0-22.0); Oxygen Saturation ABG 99.6 % (95.0-100.0); Oxyhemoglobin 97.9 % THb (90.0-100.0); PCO2 ABG 33.8 mmHg (35.0-45.0); PO2 FiO2 Ratio Arterial Blood 4.18 %; Site Drawn RIGHT RADIAL; pH ABG 7.399 (7.350-7.450)
[2023-07-26 08:09] LABS: Non-Invasive Expiratory Pressure 7 CMH2O; Non-Invasive Inspiratory Pressure 14 CMH2O; Non-Invasive Vent Rate 16 /MIN
[2023-07-26 08:12] LABS: INR 0.9
[2023-07-26 08:13] LABS: Partial Thromboplastin Time 26.3 Seconds (22.3-36.8)
[2023-07-26 08:18] LABS: NT Pro B Type Natriuretic Pept 1210 pg/mL (19.9-100); Troponin I 0.019 ng/mL (0.000-0.034)
[2023-07-26 08:34] LABS: Basophils Absolute Auto 0.1 K/mm3 (0.0-0.1); Basophils Percent Auto 0.3 % (0.2-1.2); Eosinophils Absolute Auto 0.1 K/mm3 (0-0.3); Eosinophils Percent Auto 0.5 % (0-4.4); Hematocrit 39.9 % (42.0-52.0); Hemoglobin 12.3 g/dL (14.0-18.0); Immature Granulocyte Absolute 0.16 K/mm3 (0.00-0.031); Immature Granulocyte Percent A 0.9 % (0-0.5); Lymphocytes Absolute Auto 0.86 K/mm3 (0.9-3.2); Lymphocytes Percent Auto 5.1 % (18.3-44.2); Mean Corpuscular HGB Conc 30.8 g/dl (32-36); Mean Corpuscular Hemoglobin 28.8 pg (26-34); Mean Corpuscular Volume 93.4 fl (80-100); Mean Platelet Volume 10.1 fl (7.4-10.4); Monocytes Absolute Auto 0.7 K/mm3 (0.1-0.6); Monocytes Percent Auto 4.2 % (2.6-8.5); Neutrophils Absolute Auto 15.2 K/mm3 (1.3-6.7); Platelet Count Result 365 k/mm3 (150-375); Red Blood Count 4.27 M/mm3 (4.6-6.20); Red Cell Distribution Width 13.3 % (11.5-14.5)
[2023-07-26 08:52] LABS: Magnesium 1.7 mg/dL (1.6-2.3)
[2023-07-26] MEDS: SODIUM CHLORIDE 0.9% IV 1,000 ML 999 ML IV CONT (08:54)
--- NOTE | 2023-07-26 09:15 | PC.NURSE ---
Pt blood pressure dropped to 73/46 at 08:45 this RN and EDP went into pt room. This RN adjusted pt BP cuff and rechecked pt bp and got a reading of 75/38. This RN removed bp cuff and put a new cuff on the pt's Left arm and BP was 88/51. EDP gave VORB to start pt on 1L NS. 0859 Pt blood pressure 96/60 0904 Pt blood pressure 103/55 0910 Pt blood pressure 111/62
[2023-07-26] MEDS: CEFEPIME 1 GM/NS 50 ML 1 GM/50 ML BAG IVPB (09:51)
[2023-07-26] MEDS: DOXYCYCLINE HYCLATE 100 MG TABLET PO (09:53)
--- NOTE | 2023-07-26 10:36 | ECG_ITS ---
SEE SCANNED COPY FOR CONFIRMED REPORT MTDD
[2023-07-26 11:16] LABS: Troponin I 0.278 ng/mL (0.000-0.034)
[2023-07-26] MEDS: SODIUM CHLORIDE 0.9% IV 500 ML 999 ML IV CONT (11:23)
[2023-07-26 11:39] LABS: Glucose Point of Care 108 mg/dl (65-105)
--- NOTE | 2023-07-26 13:23 | ECG_ITS ---
SEE SCANNED COPY FOR CONFIRMED REPORT MTDD
--- NOTE | 2023-07-26 13:31 | PM.IMHP ---
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 The patient lives at home and at 2:30 a.m. in the morning woke up with shortness of breath and chills along with a cough and chest congestion unable to produce sputum. He denies any chest pain. The patient his COPD has been under control and he has not felt the need to take inhalers. He denies any sick contacts, has had 3 lb weight loss recently, denies orthopnea, admits to shortness of breath on exertion, denies lower extremity edema or abdominal swelling. [facility] demonstrated leukocytosis, serum creatinine 2.7, troponin 0.278, EKG without acute ischemia, BNP 1210, CTA of chest without PE right thorax ground-glass opacities in negative of pneumonia edema or interstitial lung disease. The patient arrived on a BiPAP and was normotensive. He was trialed on room air but desaturated and placed back on BiPAP however his blood pressure then dropped. De-escalated back to nasal cannula and upon evaluation he was saturating above 90% on 5 L high-flow nasal cannula. His blood pressure now 100/70 status post 1.5 L normal saline bolus. Administered doxycycline and cefepime. Review of Systems Review of Systems: All systems reviewed & are unremarkable except as noted in HPI and below (Subjective) [facility] Past Medical History Medical History Chronic kidney disease, stage 3 Esophageal ulcer Gastroesophageal reflux disease Hyperlipidemia Hypertension Paroxysmal atrial fibrillation 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 Code status: Full code. Smoking status: Former smoker Tobacco type: cigarettes Second hand tobacco smoke exposure: Yes Alcohol intake: former Substance use: former Lack of Transportation: No Lack of Food: Often True Current Housing: I Have Housing Concerned About Future Housing: No Difficulty Paying Gas/Electric Bills: No Difficulty Paying for Meds: No Currently Unemployed: No Education: Trade/Vocational Certificate Difficulty w/ Childcare or Family Care: No Additional living arrangements comments: Lives with spouse in [place]. Additional occupation/education comments: Retired. Spiritual care concerns: No Meds Home Medications and Allergies Home Medications Medication Instructions Recorded Confirmed Type hydrocodone 5 mg-acetaminophen 325 1 tablet PO Q8H PRN pain #10 tabs 07/25/21 07/26/23 Rx mg tablet abiraterone 250 mg tablet (Zytiga) 1,000 mg PO DAILY 06/11/22 07/26/23 History amlodipine 2.5 mg tablet (Norvasc) 2.5 mg PO DAILY 06/11/22 07/26/23 History carvedilol 12.5 mg tablet 25 mg PO BID 06/11/22 07/26/23 History insulin aspart U-100 100 unit/mL See Protocol subcut TID 06/11/22 07/26/23 History (3 mL) subcutaneous pen (Novolog FlexPen U-100 Insulin aspart) insulin glargine 100 unit/mL (3 See Rx Instructions .Route .COMPLEX 06/11/22 07/26/23 History mL) subcutaneous pen (Lantus Solostar U-100 Insulin) lisinopril 20 mg tablet (Zestril) 30 mg PO DEVORA
[2023-07-26 14:05] LABS: Troponin I 0.477 ng/mL (0.000-0.034)
[2023-07-26] MEDS: LEVALBUTEROL NEB 1.25 MG/3 ML INHALATION ×2 (14:39→19:51)
[2023-07-26] MEDS: IPRATROPIUM BR 0.02% INH SOLN 0.5 MG/2.5 ML VIAL INHALATION ×2 (14:39→19:51)
[2023-07-26] MEDS: ACETYLCYSTEINE 20% INHAL SOLN 800 MG/4 ML VIAL 200 MG INHALATION ×2 (14:39→19:51)
[2023-07-26] MEDS: guaiFENesin 12 HR 600 MG TABCR 1200 MG PO ×2 (15:25→20:41)
[2023-07-26 15:33] LABS: Appearance Urine Cloudy (Clear); Bacteria Urine None Seen /hpf; Bilirubin Urine Negative (Negative); Blood Urine 1+ (Negative); Color Urine Yellow (Yellow); Glucose Urine UA Negative (Negative); Ketones Urine Negative (Negative); Leukocyte Esterase Ur 2+ LEU/UL (Negative); Nitrate Urine Negative (Negative); Non Pathogenic Casts 0-2; Protein Urine 2+ mg/dL (Negative); Squamous Epithelial Cell Urine None Seen /hpf (Few); Urobilinogen Urine 0.2 mg/dL (<2.0); WBC Urine >100 /hpf (0-3)
[2023-07-26 15:36] LABS: Creatinine Urine 56.5 mg/dL
[2023-07-26 15:37] LABS: Add Urine Microscopic? YES
[2023-07-26 15:38] LABS: Sodium Urine Random 84 meq/L
[2023-07-26 15:59] LABS: Influenza A QL RT-PCR Negative (Negative); Influenza B QL RT-PCR Negative (Negative); RSV RNA, RT-PCR Negative (Negative); SARS-CoV-2 RNA PCR Negative (Negative)
[2023-07-26 16:02] LABS: Glucose Point of Care 92 mg/dl (65-105)
[2023-07-26 16:19] LABS: Eosinophil Urine Rare % (None Seen); Urine Eos QC 2nd Tech Confirmed
[2023-07-26] MEDS: INSULIN ASPART (*BKC) 100 UNITS/ML 8 UNITS SUB-Q (16:22)
[2023-07-26] MEDS: methylPREDNISolone SOD SUCC 125 MG VIAL 60 MG IV PUSH ×2 (16:25→23:29)
--- NOTE | 2023-07-26 16:44 | ADMGEN ---
This patient, Gal Johnston, was admitted to IMU Room 202-. Patient/family oriented to hospital policies and general routines including ID bracelet, bed and alarms, visiting hours, pain management, procedures, bathroom and other care routines, personal items, smoking policy, room service/diet, and visiting hours. Information on how to activate the Rapid Response Team has been discussed. Patient/Family are encouraged to report perceived risks to care and to ask questions if they do not understand what they are told or what they should do.
--- NOTE | 2023-07-26 18:06 | ECG_ITS ---
SEE SCANNED COPY FOR CONFIRMED REPORT MTDD
[2023-07-26 19:17] LABS: Troponin I 0.878 ng/mL (0.000-0.034)
[2023-07-26 20:27] LABS: Glucose Point of Care 27 mg/dl (65-105)
[2023-07-26] MEDS: DEXTROSE 50% 25 GM/50 ML SYRINGE IV PUSH (20:34)
[2023-07-26 20:46] LABS: Glucose Point of Care 170 mg/dl (65-105)
[2023-07-26] MEDS: DEXTROSE 5% 1,000 ML 1,000 ML 50 ML IV CONT (20:47)
[2023-07-26 21:47] LABS: Glucose Point of Care 119 mg/dl (65-105)
[2023-07-26 22:20] LABS: Troponin I 0.908 ng/mL (0.000-0.034)
[2023-07-26 22:45] LABS: Glucose Point of Care 120 mg/dl (65-105)
[2023-07-27] VITALS (29 sets, daily range): BP systolic 138–166; BP diastolic 60–80; PULSE 67–87; RESP 16–23; TEMP 35.9–36.6; O2SAT 95–100
[2023-07-27 00:54] LABS: Glucose Point of Care 148 mg/dl (65-105)
[2023-07-27] MEDS: ACETYLCYSTEINE 20% INHAL SOLN 800 MG/4 ML VIAL 200 MG INHALATION ×4 (01:47→20:57)
[2023-07-27] MEDS: LEVALBUTEROL NEB 1.25 MG/3 ML INHALATION ×4 (01:47→20:56)
[2023-07-27] MEDS: IPRATROPIUM BR 0.02% INH SOLN 0.5 MG/2.5 ML VIAL INHALATION ×4 (01:47→20:55)
[2023-07-27 04:17] LABS: Glucose Point of Care 189 mg/dl (65-105)
[2023-07-27 05:22] LABS: Hemoglobin 12.9 g/dL (14.0-18.0); Mean Corpuscular HGB Conc 30.7 g/dl (32-36); Mean Corpuscular Hemoglobin 28.8 pg (26-34); Mean Corpuscular Volume 93.8 fl (80-100); Platelet Count Result 338 k/mm3 (150-375); Red Blood Count 4.48 M/mm3 (4.6-6.20); Red Cell Distribution Width 13.5 % (11.5-14.5); White Blood Count 23.1 K/mm3 (4.5-10.0)
[2023-07-27 05:38] LABS: Anion Gap 14 mmol/L (4-12); Blood Urea Nitrogen 45 mg/dL (9-20); Calcium 9.4 mg/dL (8.4-10.2); Carbon Dioxide 19 mmol/L (22-30); Chloride 108 mmol/L (98-107); Estimated CRCL calculation 23 ml/min; Estimated Glomerular Filt Rate 23; Glucose 192 mg/dL (65-110); Potassium 4.4 mmol/L (3.4-5.0); Sodium 141 mmol/L (137-145)
[2023-07-27 05:46] LABS: Band Neutrophils Percent 3 % (0-6); Lymphocytes Absolute Manual 0.69 K/mm3 (1.1-4.5); Neutrophils Percent Manual 94 % (46-73); Total Cells Counted 100
[2023-07-27 05:47] LABS: Platelet Estimate Increased (Adequate); Schistocytes None Seen
--- NOTE | 2023-07-27 06:00 | ECHO_ITS ---
Patient Info Name: Gal Johnston Age: 82 years : 1940 Gender: Male Ht: 71 in Wt: 225 lbs BSA: 2.29 m2 HR: 84 bpm BP: 153 / 80 mmHg Heart Rhythm: Sinus Rhythm Technical Quality: Fair Exam Date: 07/27/2023 7:34 AM Exam Location: Echo Lab Patient Status: Inpatient Admit Date: 07/26/2023 Staff Ordering Physician: Myron Cantu MD [employer] Buyer: Verónica Magdaleno RDCS Attending Provider: Lc Tom MD Referring Physician: Pepe SCHMIDT; Exam Type: CA echo dop color flow w con Study Info Indications - pulmonary edema Complete two-dimensional, color flow and Doppler transthoracic echocardiogram is performed with contrast to opacify the left ventricle and to improve the deliniation of the left ventricle endocardial borders. Contrast/Agitated Saline Contrast/Ag. Saline: Definity Amount: 2.00 ml Administered By: Verónica Magdaleno RDCS Existing IV Access: Yes IV Access Condition: patent with no signs of infiltration Summary 1. Left ventricular chamber dimension is normal. 2. Left ventricular systolic function is normal, estimated at 60-65%. 3. There is mildly increased left ventricular wall thickness. 4. The left ventricular diastolic function is grade I diastolic dysfunction. 5. Right ventricular systolic function is normal. 6. There is moderate-severe aortic valve calcification. 7. There is moderate to severe aortic valve stenosis with a peak velocity of 304.01 cm/s, mean gradient of 19 mmHg, and aortic valve area of 0.93 cm2. Left Ventricle Left ventricular chamber dimension is normal. Left ventricular systolic function is normal, estimated at 60-65%. There is mildly increased left ventricular wall thickness. The left ventricular diastolic function is grade I diastolic dysfunction. Right Ventricle Right ventricular chamber dimension is normal. Right ventricular systolic function is normal. Left Atria Left atrial chamber dimension is normal. Right Atria Right atrial chamber dimension is normal. Atrial Septum Intact interatrial septum visualized by color flow imaging. Aortic Valve The aortic valve is not well visualized. There is moderate to severe aortic valve stenosis with a peak velocity of 304.01 cm/s, mean gradient of 19 mmHg, and aortic valve area of 0.93 cm2. There is no aortic valve regurgitation. There is moderate-severe aortic valve calcification. Pulmonic Valve The pulmonic valve is not well visualized. There is no pulmonic regurgitation. Mitral Valve There is trace mitral valve regurgitation. The mitral valve annulus is mildly calcified. Tricuspid Valve There is trace tricuspid valve regurgitation. Pericardium/Pleural There is no pericardial effusion. Inferior Vena Cava Normal inferior vena cava with >50% collapse upon inspiration consistent with normal right atrial pressure, 3 mmHg. Aorta The aortic root size at the sinus of Valsalva is normal. Left Ventricular Outflow Tract Name Value Normal LVOT 2D LVOT Diameter 2.24 cm LVOT Doppler LVOT Peak Gradient 2 mmHg LVOT Mean Gradient 1 mmHg LVOT VTI 16.72 cm
[2023-07-27 06:04] LABS: Procalcitonin 12.8 ng/mL
[2023-07-27] MEDS: methylPREDNISolone SOD SUCC 125 MG VIAL 60 MG IV PUSH (06:17)
--- NOTE | 2023-07-27 06:56 | PC.NURSE ---
Patient's blood glucose at 2023 resulted at 27. Patient diaphoretic and somnolent but answers questions appropriately. Dr. Ng notified and at bedside. Hypoglycemia protocol followed and 1/2 am D50 pushed. Blood glucose rechecked at 2044 and resulted at 170. Received orders to initiate D5W at 50 mL/hr and continue frequent accuchecks. Patient mental status improved. Tabitha updated on patient condition. Will continue to monitor.
[2023-07-27 08:12] LABS: Glucose Point of Care 222 mg/dl (65-105)
[2023-07-27] MEDS: PERFLUTREN LIPID MICROSPHERES 1.5 ML VIAL DILUTED TO 10 ML TOTAL VOLUME IV PUSH (08:12)
--- NOTE | 2023-07-27 09:27 | IVDEFINITY ---
Prior to administration of IV Definity the patient was educated on the risks and benefits of the imaging enhancing agent including potential adverse side effects. The patient verbalized understanding. Allergies were verified. No exclusion criteria were identified and at least one of the following inclusion criteria were met: 1) physician request, 2) patient technically difficult to image (per the [place] [employer] guidelines of two or more segments not discernable within the apical view), or 3) questionable left ventricular function. ?
[2023-07-27] MEDS: ENOXAPARIN 30 MG/0.3 ML SYRINGE SUB-Q (09:41)
[2023-07-27] MEDS: cefTRIAXone 2 GM/NS 100 ML 2 GM/100 ML BAG IVPB (09:41)
[2023-07-27] MEDS: guaiFENesin 12 HR 600 MG TABCR 1200 MG PO ×2 (09:41→20:36)
[2023-07-27] MEDS: INSULIN ASPART (*BKC) 100 UNITS/ML 8 UNITS SUB-Q ×2 (09:41→16:56)
[2023-07-27 10:51] LABS: Magnesium 1.7 mg/dL (1.6-2.3)
[2023-07-27] MEDS: AZITHROMYCIN 500 MG/NS 250 ML 500 MG/250 ML BAG 250 MG IVPB (10:55)
[2023-07-27] MEDS: carvediloL 12.5 MG TABLET 25 MG PO ×2 (11:06→20:36)
[2023-07-27] MEDS: amLODIPine BESYLATE 2.5 MG TABLET PO (11:06)
[2023-07-27] MEDS: lisinopriL 10 MG TABLET 30 MG PO (11:06)
[2023-07-27] MEDS: PANTOPRAZOLE 40 MG TABLET PO (11:07)
[2023-07-27 11:49] LABS: Glucose Point of Care 297 mg/dl (65-105)
--- NOTE | 2023-07-27 12:22 | P.PNIM_ITS ---
Progress Note: A&P Assessment and Plan (1) Chronic obstructive pulmonary disease: Code(s): J44.9 - Chronic obstructive pulmonary disease, unspecified Status: Acute (2) Paroxysmal atrial fibrillation: Code(s): I48.0 - Paroxysmal atrial fibrillation Status: Acute (3) Gastroesophageal reflux disease: Code(s): K21.9 - Gastro-esophageal reflux disease without esophagitis Status: Acute (4) Hyperlipidemia: Code(s): E78.5 - Hyperlipidemia, unspecified Status: Acute (5) Hypertension: Code(s): I10 - Essential (primary) hypertension Status: Acute (6) Type 2 diabetes mellitus: Code(s): E11.9 - Type 2 diabetes mellitus without complications Status: Acute (7) COPD exacerbation: Code(s): J44.1 - Chronic obstructive pulmonary disease with (acute) exacerbation Status: Acute (8) Acute respiratory failure with hypoxia: Code(s): J96.01 - Acute respiratory failure with hypoxia Status: Acute (9) Community acquired pneumonia: Code(s): J18.9 - Pneumonia, unspecified organism Status: Acute (10) A-fib: Code(s): I48.91 - Unspecified atrial fibrillation Status: Acute (11) Elevated troponin: Code(s): R79.89 - Other specified abnormal findings of blood chemistry Status: Acute (12) Pulmonary edema: Qualifiers: Chronicity: acute Qualified Code(s): J81.0 - Acute pulmonary edema Code(s): J81.1 - Chronic pulmonary edema Status: Acute (13) Acute on chronic renal failure: Code(s): N17.9 - Acute kidney failure, unspecified; N18.9 - Chronic kidney disease, unspecified Status: Acute (14) Non-STEMI (non-ST elevated myocardial infarction): Code(s): I21.4 - Non-ST elevation (NSTEMI) myocardial infarction Status: Acute Plan Acute respiratory failure multifocal secondary to pneumonia, COPD, and CHF exacerbation * Bronchodilators. * Chest CT: No PE/Ground glass opacities/mild edema, atypical pneumonia * incentive spirometry while awake. * sputum culture ordered * influenza/COVID/RSV negative * respiratory panel pending * Cefepime/doxycycline * supplemental oxygen therapy to maintain oxygen 92% weaned to 5L BIPAP in the ED * WBC trended up likely secondary to steroid administration in the ed. Sepsis without septic shock secondary to pneumonia with hypoxia * empiric IV antibiotic therapy * Two sets of blood cultures pending * urine cultures. Pending- * TTE pending * Chest x-ray atypical pneumonia vs edema * glucose monitoring and control Non-STEMI * Could be any ischemic demand due to underlying respiratory status with pneumonia * Denies chest pain worse with coughing likely secondary to pneumonia * serial troponins x3 q.6 hours upper trend repeat 0.908 follow-up troponin pending * EKG without ischemic changes q.6 hours noted AFib * cardiology consulted * Echocardiogram pending * continuous cardiac monitoring Acute Heart failure * New onset? * BNP 1210 * echo pending * CTA Pulmonary edema * cardiology consulted * IV Lasix b.i.d. * monitor renal function during diuresis * NO previous echocardiogram results * echocardiogram pending * EKG AFIB * Optimize Gregory inhibitors, beta-blockers * Daily weight. Acute on chronic renal failure * on Lasix monitor closely * nephrology consulted * Avoid nephrotoxic drugs. * Monitor antihypertensive drug therapy. * Avoid NSAIDs. * Routine CMP monitoring GFR.
--- NOTE | 2023-07-27 12:22 | PM.IMPN ---
Progress Note: A&P Assessment and Plan (1) Chronic obstructive pulmonary disease: Code(s): J44.9 - Chronic obstructive pulmonary disease, unspecified Status: Acute (2) Paroxysmal atrial fibrillation: Code(s): I48.0 - Paroxysmal atrial fibrillation Status: Acute (3) Gastroesophageal reflux disease: Code(s): K21.9 - Gastro-esophageal reflux disease without esophagitis Status: Acute (4) Hyperlipidemia: Code(s): E78.5 - Hyperlipidemia, unspecified Status: Acute (5) Hypertension: Code(s): I10 - Essential (primary) hypertension Status: Acute (6) Type 2 diabetes mellitus: Code(s): E11.9 - Type 2 diabetes mellitus without complications Status: Acute (7) COPD exacerbation: Code(s): J44.1 - Chronic obstructive pulmonary disease with (acute) exacerbation Status: Acute (8) Acute respiratory failure with hypoxia: Code(s): J96.01 - Acute respiratory failure with hypoxia Status: Acute (9) Community acquired pneumonia: Code(s): J18.9 - Pneumonia, unspecified organism Status: Acute (10) A-fib: Code(s): I48.91 - Unspecified atrial fibrillation Status: Acute (11) Elevated troponin: Code(s): R79.89 - Other specified abnormal findings of blood chemistry Status: Acute (12) Pulmonary edema: Qualifiers: Chronicity: acute Qualified Code(s): J81.0 - Acute pulmonary edema Code(s): J81.1 - Chronic pulmonary edema Status: Acute (13) Acute on chronic renal failure: Code(s): N17.9 - Acute kidney failure, unspecified; N18.9 - Chronic kidney disease, unspecified Status: Acute (14) Non-STEMI (non-ST elevated myocardial infarction): Code(s): I21.4 - Non-ST elevation (NSTEMI) myocardial infarction Status: Acute Plan Acute respiratory failure multifocal secondary to pneumonia, COPD, and CHF exacerbation Bronchodilators. Chest CT: No PE/Ground glass opacities/mild edema, atypical pneumonia incentive spirometry while awake. sputum culture ordered influenza/COVID/RSV negative respiratory panel pending Cefepime/doxycycline supplemental oxygen therapy to maintain oxygen 92% weaned to 5L BIPAP in the ED WBC trended up likely secondary to steroid administration in the ed. Sepsis without septic shock secondary to pneumonia with hypoxia empiric IV antibiotic therapy Two sets of blood cultures pending urine cultures. Pending- TTE pending Chest x-ray atypical pneumonia vs edema glucose monitoring and control Non-STEMI Could be any ischemic demand due to underlying respiratory status with pneumonia Denies chest pain worse with coughing likely secondary to pneumonia serial troponins x3 q.6 hours upper trend repeat 0.908 follow-up troponin pending EKG without ischemic changes q.6 hours noted AFib cardiology consulted Echocardiogram pending continuous cardiac monitoring Acute Heart failure New onset? BNP 1210 echo pending CTA Pulmonary edema cardiology consulted IV Lasix b.i.d. monitor renal function during diuresis NO previous echocardiogram results echocardiogram pending EKG AFIB Optimize Gregory inhibitors, beta-blockers Daily weight. Acute on chronic renal failure on Lasix monitor closely nephrology consulted Avoid nephrotoxic drugs. Monitor antihypertensive drug therapy. Avoid NSAIDs. Routine CMP monitoring GFR. Monitor electrolytes especially potassium. Antibiotic doses depending on creatinine clearance. Pharmacy does medications. Cr upward trend Diabetes Accu-Cheks a.c. HS sliding scale insulin Holding Januvia resume patient's home long-acting Hemoglobin A1c goal less than 7 pending lipid panel pending Diabetic diet Optimize Gregory inhibitors and statins. Watch for hypoglycemia/hypoglycemic protocol ordered HX AFIB: No AC HX of gastric ulcer bleed HX GERD: PPI resumed
[2023-07-27] MEDS: INSULIN ASPART (*BKC) 100 UNITS/ML SUB-Q ×2 (12:32→16:56)
[2023-07-27 13:13] LABS: Troponin I 0.268 ng/mL (0.000-0.034)
--- NOTE | 2023-07-27 13:32 | PM.CNCAR ---
Assessment and Plan Assessment and plan (1) Elevated troponin: Code(s): R79.89 - Other specified abnormal findings of blood chemistry Status: Acute Assessment and Plan: Troponin elevation with trend suggestive of possible myocardial ischemia, however, patient did not present with ischemic symptoms side from significant hypoxia, acute on chronic kidney injury, and relative hypotension for which he received IV fluids. He has been treated for pneumonia and is improving clinically. Despite this pattern I do not feel the patient is suffering from an acute plaque rupture or for NSTEMI yet this is most likely type 2 infarction demand ischemia. I recommend aspirin 81 mg daily along with continuation of pravastatin 20 mg at bedtime. Continue medical management for presumed underlying CAD. Noninvasive ischemic evaluation warranted but not at this time as patient needs to recover further. DVT prophylaxis. 2D echocardiogram pending. Will review when available. Further recommendation to follow. Reviewed outside medical records from [facility] with echocardiogram preserved EF mention of mild aortic stenosis mean gradient 15 mm Hg but no other descriptive terms. His murmur is not consistent with mild aortic stenosis however. Patient is quite ill with multiple comorbidities including acute kidney injury, acute hypoxic respiratory failure, atrial fibrillation, aortic stenosis, pneumonia with significant leukocytosis requiring significant O2 supplementation. Continue telemetry and close clinical observation. Patient elevated risk for complications. I spent 83 minutes in the care of this patient at bedside including examination, discussed with the patient and his , medical team, chart review, outside medical records, medical decision-making, and documentation. (2) Community acquired pneumonia: Code(s): J18.9 - Pneumonia, unspecified organism Status: Acute Assessment and Plan: Management per primary service. Continue O2 supplementation, wean as tolerated. Continue IV antibiotics and bronchodilator therapy. He remains on ceftriaxone IV as well as azithromycin. (3) Acute respiratory failure with hypoxia: Code(s): J96.01 - Acute respiratory failure with hypoxia Status: Acute Assessment and Plan: Wean O2 supplementation as above. Bronchodilator therapy as appropriate. Noninvasive positive-pressure ventilation as warranted. I do not feel patient is experiencing clinically significant decompensated heart failure at this time. Feel is reasonable to hold off on diuretic therapy for the time being and observe volume status. (4) A-fib: Code(s): I48.91 - Unspecified atrial fibrillation Status: Acute Assessment and Plan: Patient initially in AFib currently in sinus rhythm after admission. He has not been on systemic anticoagulation due to history of GI bleed. Outpatient consideration for left atrial appendage occlusion device will be warranted. May Initiate aspirin 81 mg daily as tolerated as he reports he has been taking in the past without difficulty. Monitor reading closely. Nonetheless I suspect he may be able to resume systemic anticoagulation, however, further workup with commentary by GI would be preferable given his history. Continue carvedilol 25 mg twice daily as BP tolerates. Off systemic anticoagulation patient remains at significant risk for embolic stroke secondary to paroxysmal atrial fibrillation and should be anticoagulated if possible. Nonetheless, this decision had been made long before his presentation that he should avoid systemic anticoagulation therefore options appear somewhat limited at this time. (5) Acute on chronic renal failure: Code(s): N17.9 - Acute kidney failure, unspecified; N18.9 - Chronic kidney disease, unspecified Status: Acute Assessment and Plan: Minimize nephrotoxic agents. Reduce lisinopril BP permitting if any further
--- NOTE | 2023-07-27 14:18 | PM.CNNEP ---
Assessment and Plan Assessment and plan (1) ALEA (acute kidney injury): Code(s): N17.9 - Acute kidney failure, unspecified Status: Acute Assessment and Plan: suspect due to several issues: relative hypotension on admission infection/early sepsis (pneumonia) hypoxia contrast exposure (although creatinine was already elevated prior to this intervention) LUCIANO-I + diuretic use prior to admission current diuretic therapy (for presumed element of CHF) renal ultrasound noted -- may need MRI when more stable given findings check urine studies and CPK hold lisinopril on IV diuretics - consider holding based on Cardiology recommendations follow repeat labs and UOP (2) Chronic kidney disease, stage IV (severe): Code(s): N18.4 - Chronic kidney disease, stage 4 (severe) Status: Chronic Assessment and Plan: baseline creatinine seems to run ~ 1.9 - 2.3mg/dl in the last year this causes him to fluctuate between CKD stage 3B and stage 4 last outpatient creatinine about a week ago was 2.21mg/dl (GFR 29) CKD likely secondary to HTN, diabetes, vascular disease, and age-related change follows with [facility] (3) Acute respiratory failure with hypoxia: Code(s): J96.01 - Acute respiratory failure with hypoxia Status: Acute Assessment and Plan: multifactorial etiology: pneumonia COPD CHF (?) early sepsis (?) continue supplemental oxygen bronchodilator therapy follow respiratory status closely (4) Community acquired pneumonia: Code(s): J18.9 - Pneumonia, unspecified organism Status: Acute Assessment and Plan: as noted by imaging studies on admission follow culture data on antibiotics (5) Chronic obstructive pulmonary disease: Code(s): J44.9 - Chronic obstructive pulmonary disease, unspecified Status: Acute Assessment and Plan: complicates #3 and #4 already on bronchodilators continue supportive therapy (6) Hypertension: Code(s): I10 - Essential (primary) hypertension Status: Chronic Assessment and Plan: reasonable control at this time off LUCIANO-I due to #1 follow trend of hemodynamics (7) Type 2 diabetes mellitus: Code(s): E11.9 - Type 2 diabetes mellitus without complications Status: Chronic Assessment and Plan: follow accu-cheks glycemic control per hospitalists Long extensive discussion (greater than 20 minutes) with the patient as well as at bedside regarding his worsened renal function since his admission to the hospital and the likelihood that this deterioration is likely secondary to his acute illness / acute medical problems with the hope that ongoing medical therapy will improve his overall condition and subsequently improve his renal function as well. They appeared to both voiced understanding. I will continue follow the patient with you while remains hospitalized and make further recommendations as deemed necessary. Thank you for allowing me to participate in the care of this patient. History of Present Illness Reason for Consult Consult date: 07/27/23 Reason for consult: acute renal failure (on chronic kidney disease) Chief Complaint Chief complaint: hypoxia respiratory failure History of Present Illness Narrative: The patient is an 82-year-old male with a past medical history as outlined below who presented to [facility] Emergency room with complaints of shortness of breath. On the day of admission, the patient apparently woke up around 230 in the morning with complaints of shortness of breath, chills, cough, and chest congestion. He denied any chest pain but he reports that despite his chest congestion, he is unable to cough up anything. He does have known COPD reports it has been under control and does not feel that his symptoms are related to that issue. His shortness of breath appears to be present both at
--- NOTE | 2023-07-27 14:18 | P.CONNP_ITS ---
Assessment and Plan Assessment and plan (1) ALEA (acute kidney injury): Code(s): N17.9 - Acute kidney failure, unspecified Status: Acute Assessment and Plan: * suspect due to several issues: * relative hypotension on admission * infection/early sepsis (pneumonia) * hypoxia * contrast exposure (although creatinine was already elevated prior to this intervention) * LUCIANO-I + diuretic use prior to admission * current diuretic therapy (for presumed element of CHF) * renal ultrasound noted -- may need MRI when more stable given findings * check urine studies and CPK * hold lisinopril * on IV diuretics - consider holding based on Cardiology recommendations * follow repeat labs and UOP (2) Chronic kidney disease, stage IV (severe): Code(s): N18.4 - Chronic kidney disease, stage 4 (severe) Status: Chronic Assessment and Plan: * baseline creatinine seems to run ~ 1.9 - 2.3mg/dl in the last year * this causes him to fluctuate between CKD stage 3B and stage 4 * last outpatient creatinine about a week ago was 2.21mg/dl (GFR 29) * CKD likely secondary to HTN, diabetes, vascular disease, and age-related change * follows with [facility] (3) Acute respiratory failure with hypoxia: Code(s): J96.01 - Acute respiratory failure with hypoxia Status: Acute Assessment and Plan: * multifactorial etiology: * pneumonia * COPD * CHF (?) * early sepsis (?) * continue supplemental oxygen * bronchodilator therapy * follow respiratory status closely (4) Community acquired pneumonia: Code(s): J18.9 - Pneumonia, unspecified organism Status: Acute Assessment and Plan: * as noted by imaging studies on admission * follow culture data * on antibiotics (5) Chronic obstructive pulmonary disease: Code(s): J44.9 - Chronic obstructive pulmonary disease, unspecified Status: Acute Assessment and Plan: * complicates #3 and #4 * already on bronchodilators * continue supportive therapy (6) Hypertension: Code(s): I10 - Essential (primary) hypertension Status: Chronic Assessment and Plan: * reasonable control at this time * off LUCIANO-I due to #1 * follow trend of hemodynamics (7) Type 2 diabetes mellitus: Code(s): E11.9 - Type 2 diabetes mellitus without complications Status: Chronic Assessment and Plan: * follow accu-cheks * glycemic control per hospitalists Long extensive discussion (greater than 20 minutes) with the patient as well as at bedside regarding his worsened renal function since his admission to the hospital and the likelihood that this deterioration is likely secondary to his acute illness / acute medical problems with the hope that ongoing medical therapy will improve his overall condition and subsequently improve his renal function as well. They appeared to both voiced understanding. I will continue follow the patient with you while remains hospitalized and make further recommendations as deemed necessary. Thank you for allowing me to participate in the care of this patient. History of Present Illness Reason for Consult Consult date: 07/27/23 Reason for consult: acute renal failure (on chronic kidney disease) Chief Complaint Chief complaint: hypoxia respiratory failure History of Present Illness Narrative: The patient is an 82-year-old male with a past medical history as outlined below who presented to [facility] Emergency room with complai
[2023-07-27 16:11] LABS: Glucose Point of Care 414 mg/dl (65-105)
[2023-07-27] MEDS: FUROSEMIDE INJ 40 MG/4 ML VIAL IV PUSH (16:56)
[2023-07-27] MEDS: TIMOLOL MALEATE XE 0.5% OPHTH GEL SOLN 5 ML BTL 1 DROP EACH EYE (16:57)
[2023-07-27 18:33] LABS: Glucose Point of Care 452 mg/dl (65-105)
[2023-07-27 20:32] LABS: Glucose Point of Care 437 mg/dl (65-105)
[2023-07-27] MEDS: INSULIN GLARGINE (*BKC) 100 UNITS/ML 26 UNITS SUB-Q (20:35)
[2023-07-27] MEDS: INSULIN HUMAN REGULAR (*BKC) 100 UNITS/ML SUB-Q (20:55)
--- NOTE | 2023-07-27 21:00 | PC.NURSE ---
Patient hyperglycemic this evening with a blood glucose of 437. Patient received 26 units of scheduled Lantus. Marlena Haynes NP, notified of elevated blood glucose and orders for 8 units of Regular Insulin SQ received and administered. Blood glucose rechecked an hour later at 2215 and resulted at 452. Marlena Haynes NP, notified of elevated blood glucose and patient received an additional 5 units of Regular Insulin SQ. Blood glucose rechecked approximately 1 hour later and resulted at 398. Orders received to administer 4 units of Insulin Novolog. Will continue to monitor.
[2023-07-27 21:04] LABS: Creatinine Urine 29.4 mg/dL; Total Protein Urine Random 15 mg/dL; Ur Ttl Prot Creatinine Ratio 0.51 mg/mg (0-0.20); Urea Random Urine 233 MG/DL
[2023-07-27 21:06] LABS: Sodium Urine Random 96 meq/L
[2023-07-27 22:21] LABS: Glucose Point of Care 450 mg/dl (65-105)
[2023-07-27] MEDS: INSULIN HUMAN REGULAR (*BKC) 100 UNITS/ML 8 UNITS SUB-Q (22:31)
[2023-07-28] VITALS (23 sets, daily range): BP systolic 107–169; BP diastolic 57–74; PULSE 63–79; RESP 18–20; TEMP 35.8–36.4; O2SAT 95–100
[2023-07-28] MEDS: INSULIN ASPART (*BKC) 100 UNITS/ML SUB-Q ×2 (00:06→11:42)
[2023-07-28 00:22] LABS: Glucose Point of Care 398 mg/dl (65-105)
[2023-07-28] MEDS: ACETYLCYSTEINE 20% INHAL SOLN 800 MG/4 ML VIAL 200 MG INHALATION ×2 (02:09→07:28)
[2023-07-28] MEDS: LEVALBUTEROL NEB 1.25 MG/3 ML INHALATION ×2 (02:09→07:27)
[2023-07-28] MEDS: IPRATROPIUM BR 0.02% INH SOLN 0.5 MG/2.5 ML VIAL INHALATION ×2 (02:09→07:27)
[2023-07-28 04:32] LABS: Hematocrit 33.6 % (42.0-52.0); Hemoglobin 10.7 g/dL (14.0-18.0); Mean Corpuscular HGB Conc 31.8 g/dl (32-36); Mean Corpuscular Hemoglobin 28.9 pg (26-34); Mean Corpuscular Volume 90.8 fl (80-100); Mean Platelet Volume 10.1 fl (7.4-10.4); Platelet Count Result 336 k/mm3 (150-375); Red Cell Distribution Width 13.5 % (11.5-14.5); White Blood Count 21.4 K/mm3 (4.5-10.0)
[2023-07-28 04:50] LABS: Hemoglobin A1C 7.7 % (<5.7)
[2023-07-28 04:53] LABS: Alanine Aminotransferase 15 U/L (6-50); Albumin Level 3.5 g/dL (3.5-5.1); Alkaline Phosphatase 102 U/L (38-126); Anion Gap 11 mmol/L (4-12); Aspartate Amino Transferase 17 U/L (17-59); Bilirubin,Total 0.4 mg/dL (0.2-1.3); Blood Urea Nitrogen 62 mg/dL (9-20); Calcium 9.1 mg/dL (8.4-10.2); Carbon Dioxide 18 mmol/L (22-30); Chloride 104 mmol/L (98-107); Cholesterol 157 mg/dL (0-200); Estimated CRCL calculation 22 ml/min; Estimated Glomerular Filt Rate 22; Glucose 203 mg/dL (65-110); HDL Direct 33 mg/dL; Potassium 3.8 mmol/L (3.4-5.0); Sodium 133 mmol/L (137-145); Triglycerides 247 mg/dL (<150)
[2023-07-28 04:58] LABS: LDL Cholesterol Direct 81 mg/dL
[2023-07-28 08:09] LABS: Glucose Point of Care 170 mg/dl (65-105)
[2023-07-28] MEDS: ENOXAPARIN 30 MG/0.3 ML SYRINGE SUB-Q (08:11)
[2023-07-28] MEDS: cefTRIAXone 2 GM/NS 100 ML 2 GM/100 ML BAG IVPB (08:11)
[2023-07-28] MEDS: PANTOPRAZOLE 40 MG TABLET PO (08:12)
[2023-07-28] MEDS: lisinopriL 10 MG TABLET 30 MG PO (08:12)
[2023-07-28] MEDS: guaiFENesin 12 HR 600 MG TABCR 1200 MG PO ×2 (08:12→20:42)
[2023-07-28] MEDS: carvediloL 12.5 MG TABLET 25 MG PO ×2 (08:12→20:40)
[2023-07-28] MEDS: amLODIPine BESYLATE 2.5 MG TABLET PO (08:12)
[2023-07-28] MEDS: TIMOLOL MALEATE XE 0.5% OPHTH GEL SOLN 5 ML BTL 1 DROP EACH EYE ×2 (08:12→16:57)
[2023-07-28] MEDS: FUROSEMIDE INJ 40 MG/4 ML VIAL IV PUSH (08:12)
[2023-07-28] MEDS: INSULIN ASPART (*BKC) 100 UNITS/ML 8 UNITS SUB-Q ×3 (08:13→16:56)
[2023-07-28] MEDS: AZITHROMYCIN 500 MG/NS 250 ML 500 MG/250 ML BAG 250 MG IVPB (09:01)
--- NOTE | 2023-07-28 10:31 | PM.PNCARD ---
Progress Note: A&P Assessment and Plan (1) Elevated troponin: Code(s): R79.89 - Other specified abnormal findings of blood chemistry Status: Acute Assessment and Plan: Troponin elevation with trend suggestive of possible myocardial ischemia, however, patient did not present with ischemic symptoms side from significant hypoxia, acute on chronic kidney injury, and relative hypotension for which he received IV fluids. He has been treated for pneumonia and is improving clinically. Despite this pattern I do not feel the patient is suffering from an acute plaque rupture or for NSTEMI yet this is most likely type 2 infarction demand ischemia. -continue aspirin 81 mg daily, pravastatin 20 mg at bedtime. Outpatient Lexiscan nuclear stress test in our office after discharge as discussed. Will set up follow-up to be seen within the next 2-4 weeks if he desires follow-up with our practice or he needs to follow up with his gis scientist as above. Will see patient on an as-needed basis. Please do not hesitate to contact me additional questions or concerns. (2) Community acquired pneumonia: Code(s): J18.9 - Pneumonia, unspecified organism Status: Acute Assessment and Plan: Management per primary service. Improving, weaned to room air. Continue IV antibiotics and bronchodilator therapy. He remains on ceftriaxone IV as well as azithromycin. Transition to oral antibiotics when appropriate. (3) Acute respiratory failure with hypoxia: Code(s): J96.01 - Acute respiratory failure with hypoxia Status: Acute Assessment and Plan: He has been weaned to room air. Bronchodilator therapy as appropriate. Continue to hold off on diuretic therapy. Patient is not decompensated heart failure present. (4) A-fib: Code(s): I48.91 - Unspecified atrial fibrillation Status: Acute Assessment and Plan: Patient initially in AFib currently in sinus rhythm after admission. He has not been on systemic anticoagulation due to history of GI bleed. Outpatient consideration for left atrial appendage occlusion device will be warranted. May Initiate aspirin 81 mg daily as tolerated as he reports he has been taking in the past without difficulty. Monitor reading closely. Nonetheless I suspect he may be able to resume systemic anticoagulation, however, further workup with commentary by GI would be preferable given his history. Continue carvedilol 25 mg twice daily as BP tolerates. Patient remains off systemic anticoagulation and is at significant risk for embolic stroke secondary to paroxysmal atrial fibrillation and should be anticoagulated if possible. If deemed appropriate by primary medicine service may consider Eliquis 2.5 mg twice daily. In that case would recommend discontinuation of aspirin to reduce bleeding risk. Will defer appropriate timing in this regard to the primary service. (5) Acute on chronic renal failure: Code(s): N17.9 - Acute kidney failure, unspecified; N18.9 - Chronic kidney disease, unspecified Status: Acute Assessment and Plan: Minimize nephrotoxic agents. Nephrology consultation noted. Appreciate their involvement. Nephrology advised to hold lisinopril. I had previously recommended stopping diuretic therapy. Discontinue Lasix and hold lisinopril. Monitor BP and renal function. (6) Aortic stenosis: Code(s): I35.0 - Nonrheumatic aortic (valve) stenosis Status: Acute Assessment and Plan: Exam suggestive of least moderate aortic stenosis. Will review 2D echocardiogram when available. Recent echocardiogram April 2019 for suggest mild aortic stenosis although exam suggests significantly greater severity. Patient otherwise appears to be asymptomatic in this regard. Recommendation to follow after review. Subjective Date/time seen: Date of service: 07/28/23 10:31 Interval history: Follow-up for elevated troponin, atrial fibrillation aortic jillian
[2023-07-28] MEDS: CEFEPIME 1 GM/NS 50 ML 1 GM/50 ML BAG IVPB ×2 (10:40→20:41)
[2023-07-28 10:45] LABS: Creatine Kinase 48 U/L (55-170)
[2023-07-28 11:21] LABS: Glucose Point of Care 220 mg/dl (65-105)
--- NOTE | 2023-07-28 12:28 | PM.IMPN ---
Progress Note: A&P Assessment and Plan (1) Chronic obstructive pulmonary disease: Code(s): J44.9 - Chronic obstructive pulmonary disease, unspecified Status: Acute (2) Paroxysmal atrial fibrillation: Code(s): I48.0 - Paroxysmal atrial fibrillation Status: Acute (3) Gastroesophageal reflux disease: Code(s): K21.9 - Gastro-esophageal reflux disease without esophagitis Status: Acute (4) Hyperlipidemia: Code(s): E78.5 - Hyperlipidemia, unspecified Status: Acute (5) Hypertension: Code(s): I10 - Essential (primary) hypertension Status: Acute (6) Type 2 diabetes mellitus: Code(s): E11.9 - Type 2 diabetes mellitus without complications Status: Acute (7) COPD exacerbation: Code(s): J44.1 - Chronic obstructive pulmonary disease with (acute) exacerbation Status: Acute (8) Acute respiratory failure with hypoxia: Code(s): J96.01 - Acute respiratory failure with hypoxia Status: Acute (9) Community acquired pneumonia: Code(s): J18.9 - Pneumonia, unspecified organism Status: Acute (10) Elevated troponin: Code(s): R79.89 - Other specified abnormal findings of blood chemistry Status: Acute (11) Pulmonary edema: Qualifiers: Chronicity: acute Qualified Code(s): J81.0 - Acute pulmonary edema Code(s): J81.1 - Chronic pulmonary edema Status: Acute (12) Acute on chronic renal failure: Code(s): N17.9 - Acute kidney failure, unspecified; N18.9 - Chronic kidney disease, unspecified Status: Acute (13) Non-STEMI (non-ST elevated myocardial infarction): Code(s): I21.4 - Non-ST elevation (NSTEMI) myocardial infarction Status: Acute (14) ALEA (acute kidney injury): Code(s): N17.9 - Acute kidney failure, unspecified Status: Acute (15) Chronic kidney disease, stage 3: Code(s): N18.30 - Chronic kidney disease, stage 3 unspecified Status: Acute (16) Bacteremia: Code(s): R78.81 - Bacteremia Status: Acute Plan 82-year-old male with PMH obesity, prior tobacco abuse, active marijuana abuse, COPD, 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 Acute respiratory failure multifocal secondary to pneumonia, COPD, and CHF exacerbation+Sepsis: Hypoxia has resolved CT chest showed ground-glass opacity/mild edema, atypical pneumonia Blood cultures positive for Gram-negative rods Will obtain another set of blood culture Blood pressure is stable Continue with bronchodilators Will switch to cefepime instead of ceftriaxone Continue with bronchodilators Await echocardiogram Await urine strep, Legionella antigen Elevated BNP, concern for heart failure Await echocardiogram 2. NSTEMI: Could be possible NSTEMI versus troponin elevation Appreciate cardiology help Await echocardiogram Continue with aspirin, pravastatin Plan for outpatient stress test once gets discharged 3. History of AFib: Not on anticoagulation due to history of gastric ulcer bleed 4. ALEA on CKD: Renal ultrasound negative for any obstructive etiology Appreciate Renal help Avoid nephrotoxins Recheck BMP in a.m. 5. Diabetes mellitus: Blood glucose checked t.i.d. a.c. and HS Hyperglycemia noted Holding home dose Januvia Continue with Lantus, bolus mealtime insulin along with sliding scale insulin Adjust dose of insulin as needed 6. Hypertension: Lisinopril on hold due to kidney dysfunction Continue with Norvasc, Coreg 7. DVT prophylaxis: Lovenox 8. Code status: Full 9. Disposition: Can transfer out of IMU to [facility] surgery with tele Time Spent With Patient Time with patient: 25 - 35 minutes Subjective Date/time seen: 07/28/23 12:28 Interval history: Yisel
--- NOTE | 2023-07-28 13:09 | PM.PNNEP ---
Progress Note: A&P Assessment and Plan (1) ALEA (acute kidney injury): Code(s): N17.9 - Acute kidney failure, unspecified Status: Acute Assessment and Plan: suspect due to several issues: relative hypotension on admission infection/early sepsis (pneumonia + bacteremia) hypoxia contrast exposure (although creatinine was already elevated prior to this intervention) LUCIANO-I + diuretic use prior to admission IV diuretic use (for presumed element of CHF) lisinopril on hold evaluation to date: renal ultrasound noted -- may need MRI when more stable given findings (can be done as an outpatient) urine eosinophil rare but this could represent inflammation urine electrolytes non-prerenal CPK low moderate proteinuria hold lisinopril follow repeat labs and UOP (2) Chronic kidney disease, stage IV (severe): Code(s): N18.4 - Chronic kidney disease, stage 4 (severe) Status: Chronic Assessment and Plan: baseline creatinine seems to run ~ 1.9 - 2.3mg/dl in the last year this causes him to fluctuate between CKD stage 3B and stage 4 last outpatient creatinine about a week ago was 2.21mg/dl (GFR 29) CKD likely secondary to HTN, diabetes, vascular disease, and age-related change follows with [facility] (3) Bacteremia: Code(s): R78.81 - Bacteremia Status: Acute Assessment and Plan: blood culture with E. coli urinary source?? admission UA suggestive of infection unfortunately, urine collection not collected on antibiotics follow repeat cultrues (4) Acute respiratory failure with hypoxia: Code(s): J96.01 - Acute respiratory failure with hypoxia Status: Acute Assessment and Plan: clinical improvement noted multifactorial etiology: pneumonia COPD CHF (?) early sepsis (?) continue supplemental oxygen PRN bronchodilator therapy follow respiratory status closely (5) Community acquired pneumonia: Code(s): J18.9 - Pneumonia, unspecified organism Status: Acute Assessment and Plan: as noted by imaging studies on admission follow culture data on antibiotics (6) Chronic obstructive pulmonary disease: Code(s): J44.9 - Chronic obstructive pulmonary disease, unspecified Status: Acute Assessment and Plan: complicates #4 and #5 already on bronchodilators continue supportive therapy (7) Hypertension: Code(s): I10 - Essential (primary) hypertension Status: Chronic Assessment and Plan: reasonable control at this time off LUCIANO-I due to #1 follow trend of hemodynamics (8) Type 2 diabetes mellitus: Code(s): E11.9 - Type 2 diabetes mellitus without complications Status: Chronic Assessment and Plan: follow accu-cheks glycemic control per hospitalists Will continue to follow Subjective Date/time seen: 07/28/23 13:09 Interval history: Follow-up for acute kidney injury/acute kidney failure on chronic kidney disease. Overall, he states he feels significantly better; breathing/respiratory status has improved and he has been weaned to room air; stable hemodynamics noted; renal function slightly worse but reasonable urine output; no apparent distress. Exam Narrative: General: elderly but WD/WN male in NAD Heart: normal S1 and S2; no rub Lungs: diminished throughout with a few wheezes noted Abdomen: soft, nontender, nondistended, positive bowel sounds Extremities: no cyanosis or clubbing; no edema Skin: warm and dry Objective Data Vital Signs Vital Signs: Vital Signs Temp Pulse Resp BP Pulse Ox O2 Del Method O2 Flow Rate 07/28/23 12:00 79 07/28/23 11:10 68 20 132/57 L 96 07/28/23 10:00 77 07/28/23 08:00 78 07/28/23 08:00 Room Air 07/28/23 08:19 97 Room Air 07/28/23 07:48 97.0 F L 64 20 169/74 H 100 07/28/23 07:41 67 18
--- NOTE | 2023-07-28 13:09 | P.PNNP_ITS ---
Progress Note: A&P Assessment and Plan (1) ALEA (acute kidney injury): Code(s): N17.9 - Acute kidney failure, unspecified Status: Acute Assessment and Plan: * suspect due to several issues: * relative hypotension on admission * infection/early sepsis (pneumonia + bacteremia) * hypoxia * contrast exposure (although creatinine was already elevated prior to this intervention) * LUCIANO-I + diuretic use prior to admission * IV diuretic use (for presumed element of CHF) * lisinopril on hold * evaluation to date: * renal ultrasound noted -- may need MRI when more stable given findings (can be done as an outpatient) * urine eosinophil rare but this could represent inflammation * urine electrolytes non-prerenal * CPK low * moderate proteinuria * hold lisinopril * follow repeat labs and UOP (2) Chronic kidney disease, stage IV (severe): Code(s): N18.4 - Chronic kidney disease, stage 4 (severe) Status: Chronic Assessment and Plan: * baseline creatinine seems to run ~ 1.9 - 2.3mg/dl in the last year * this causes him to fluctuate between CKD stage 3B and stage 4 * last outpatient creatinine about a week ago was 2.21mg/dl (GFR 29) * CKD likely secondary to HTN, diabetes, vascular disease, and age-related change * follows with [facility] (3) Bacteremia: Code(s): R78.81 - Bacteremia Status: Acute Assessment and Plan: * blood culture with E. coli * urinary source?? * admission UA suggestive of infection * unfortunately, urine collection not collected * on antibiotics * follow repeat cultrues (4) Acute respiratory failure with hypoxia: Code(s): J96.01 - Acute respiratory failure with hypoxia Status: Acute Assessment and Plan: * clinical improvement noted * multifactorial etiology: * pneumonia * COPD * CHF (?) * early sepsis (?) * continue supplemental oxygen PRN * bronchodilator therapy * follow respiratory status closely (5) Community acquired pneumonia: Code(s): J18.9 - Pneumonia, unspecified organism Status: Acute Assessment and Plan: * as noted by imaging studies on admission * follow culture data * on antibiotics (6) Chronic obstructive pulmonary disease: Code(s): J44.9 - Chronic obstructive pulmonary disease, unspecified Status: Acute Assessment and Plan: * complicates #4 and #5 * already on bronchodilators * continue supportive therapy (7) Hypertension: Code(s): I10 - Essential (primary) hypertension Status: Chronic Assessment and Plan: * reasonable control at this time * off LUCIANO-I due to #1 * follow trend of hemodynamics (8) Type 2 diabetes mellitus: Code(s): E11.9 - Type 2 diabetes mellitus without complications Status: Chronic Assessment and Plan: * follow accu-cheks * glycemic control per hospitalists Will continue to follow Subjective Date/time seen: 07/28/23 13:09 Interval history: Follow-up for acute kidney injury/acute kidney failure on chronic kidney disease. Overall, he states he feels significantly better; breathing/respiratory status has improved and he has been weaned to room air; stable hemodynamics noted; renal function slightly worse but reasonable urine output; no apparent distress. Exam Narrative: General: elderly but WD/WN male in NAD Heart: normal S1 and S2; no rub
--- NOTE | 2023-07-28 14:53 | PCCCNOTE ---
On 07/28/23, the student, [Dedra Kiran ], provided care and completed [facility] documentation on this patient. I have reviewed the student's documentation and agree with the findings.
[2023-07-28 15:57] LABS: Glucose Point of Care 125 mg/dl (65-105)
[2023-07-28 20:13] LABS: Glucose Point of Care 107 mg/dl (65-105)
[2023-07-29] VITALS (12 sets, daily range): BP systolic 100–138; BP diastolic 44–62; PULSE 55–78; RESP 16–20; TEMP 35.4–36.4; O2SAT 94–99
[2023-07-29 06:29] LABS: Hematocrit 34.4 % (42.0-52.0); Hemoglobin 10.9 g/dL (14.0-18.0); Mean Corpuscular HGB Conc 31.7 g/dl (32-36); Mean Corpuscular Hemoglobin 28.8 pg (26-34); Mean Corpuscular Volume 90.8 fl (80-100); Mean Platelet Volume 9.8 fl (7.4-10.4); Platelet Count Result 296 k/mm3 (150-375); Red Blood Count 3.79 M/mm3 (4.6-6.20); Red Cell Distribution Width 13.4 % (11.5-14.5); White Blood Count 13.4 K/mm3 (4.5-10.0)
[2023-07-29 06:42] LABS: Alanine Aminotransferase 15 U/L (6-50); Albumin Level 3.3 g/dL (3.5-5.1); Alkaline Phosphatase 98 U/L (38-126); Anion Gap 8 mmol/L (4-12); Aspartate Amino Transferase 17 U/L (17-59); Bilirubin,Total 0.5 mg/dL (0.2-1.3); Blood Urea Nitrogen 65 mg/dL (9-20); Calcium 9.1 mg/dL (8.4-10.2); Carbon Dioxide 22 mmol/L (22-30); Chloride 106 mmol/L (98-107); Estimated CRCL calculation 23 ml/min; Estimated Glomerular Filt Rate 23; Glucose 96 mg/dL (65-110); Potassium 3.4 mmol/L (3.4-5.0); Sodium 136 mmol/L (137-145)
--- NOTE | 2023-07-29 08:17 | PM.IMPN ---
Progress Note: A&P Assessment and Plan (1) Chronic obstructive pulmonary disease: Code(s): J44.9 - Chronic obstructive pulmonary disease, unspecified Status: Acute (2) Paroxysmal atrial fibrillation: Code(s): I48.0 - Paroxysmal atrial fibrillation Status: Acute (3) Gastroesophageal reflux disease: Code(s): K21.9 - Gastro-esophageal reflux disease without esophagitis Status: Acute (4) Hyperlipidemia: Code(s): E78.5 - Hyperlipidemia, unspecified Status: Acute (5) Hypertension: Code(s): I10 - Essential (primary) hypertension Status: Acute (6) Type 2 diabetes mellitus: Code(s): E11.9 - Type 2 diabetes mellitus without complications Status: Acute (7) COPD exacerbation: Code(s): J44.1 - Chronic obstructive pulmonary disease with (acute) exacerbation Status: Acute (8) Acute respiratory failure with hypoxia: Code(s): J96.01 - Acute respiratory failure with hypoxia Status: Acute (9) Community acquired pneumonia: Code(s): J18.9 - Pneumonia, unspecified organism Status: Acute (10) Elevated troponin: Code(s): R79.89 - Other specified abnormal findings of blood chemistry Status: Acute (11) Pulmonary edema: Qualifiers: Chronicity: acute Qualified Code(s): J81.0 - Acute pulmonary edema Code(s): J81.1 - Chronic pulmonary edema Status: Acute (12) Acute on chronic renal failure: Code(s): N17.9 - Acute kidney failure, unspecified; N18.9 - Chronic kidney disease, unspecified Status: Acute (13) Non-STEMI (non-ST elevated myocardial infarction): Code(s): I21.4 - Non-ST elevation (NSTEMI) myocardial infarction Status: Acute (14) ALEA (acute kidney injury): Code(s): N17.9 - Acute kidney failure, unspecified Status: Acute (15) Chronic kidney disease, stage 3: Code(s): N18.30 - Chronic kidney disease, stage 3 unspecified Status: Acute (16) Bacteremia: Code(s): R78.81 - Bacteremia Status: Acute Plan 82-year-old male with PMH obesity, prior tobacco abuse, active marijuana abuse, COPD, 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 Acute respiratory failure multifocal secondary to pneumonia, COPD, and CHF exacerbation+Sepsis: Hypoxia has resolved CT chest showed ground-glass opacity/mild edema, atypical pneumonia Blood cultures positive for Gram-negative rods Will obtain another set of blood culture Blood pressure is stable Continue with bronchodilators Will switch to cefepime instead of ceftriaxone Continue with bronchodilators Await echocardiogram Await urine strep, Legionella antigen Elevated BNP, concern for heart failure echocardiogram ? 1. Left ventricular chamber dimension is normal. ? 2. Left ventricular systolic function is normal, estimated at 60-65%. ? 3. There is mildly increased left ventricular wall thickness. ? 4. The left ventricular diastolic function is grade I diastolic dysfunction. ? 5. Right ventricular systolic function is normal. ? 6. There is moderate-severe aortic valve calcification. ? 7. There is moderate to severe aortic valve stenosis with a peak velocity of 304.01 cm/s, mean gradient of 19 mmHg, and aortic valve area of 0.93 cm2. 2. NSTEMI: Could be possible NSTEMI versus troponin elevation Appreciate cardiology help Await echocardiogram Continue with aspirin, pravastatin Plan for outpatient stress test once gets discharged 07/28 telemetry showed frequent PVCs potassium 3.4, follow magnesium level, provide potassium chloride 40 mg p.o. ship's engineer on board, follow recommendation 3. History of AFib: Not on anticoagulation due to history of gastric ulcer bleed 4. ALEA on CKD: Renal
[2023-07-29 08:38] LABS: Glucose Point of Care 131 mg/dl (65-105)
[2023-07-29] MEDS: carvediloL 12.5 MG TABLET 25 MG PO ×2 (09:13→21:08)
[2023-07-29] MEDS: AZITHROMYCIN 500 MG/NS 250 ML 500 MG/250 ML BAG 250 MG IVPB (09:13)
[2023-07-29] MEDS: CEFEPIME 1 GM/NS 50 ML 1 GM/50 ML BAG IVPB ×2 (09:13→21:08)
[2023-07-29] MEDS: PANTOPRAZOLE 40 MG TABLET PO (09:14)
[2023-07-29] MEDS: guaiFENesin 12 HR 600 MG TABCR 1200 MG PO ×2 (09:14→21:08)
[2023-07-29] MEDS: amLODIPine BESYLATE 2.5 MG TABLET PO (09:14)
[2023-07-29] MEDS: POTASSIUM CHLORIDE 20 MEQ PACKET (FOR LIQUID) 40 MEQ PO (09:15)
[2023-07-29 09:28] LABS: Magnesium 1.8 mg/dL (1.6-2.3)
[2023-07-29] MEDS: ENOXAPARIN 30 MG/0.3 ML SYRINGE SUB-Q (09:47)
[2023-07-29] MEDS: TIMOLOL MALEATE XE 0.5% OPHTH GEL SOLN 5 ML BTL 1 DROP EACH EYE ×2 (09:47→17:25)
[2023-07-29] MEDS: INSULIN ASPART (*BKC) 100 UNITS/ML 8 UNITS SUB-Q (09:49)
--- NOTE | 2023-07-29 10:20 | PM.PNNEP ---
Progress Note: A&P Assessment and Plan (1) ALEA (acute kidney injury): Code(s): N17.9 - Acute kidney failure, unspecified Status: Acute Assessment and Plan: suspect due to several issues: relative hypotension on admission infection/early sepsis (pneumonia + bacteremia) hypoxia contrast exposure (although creatinine was already elevated prior to this intervention) LUCIANO-I + diuretic use prior to admission IV diuretic use (for presumed element of CHF) lisinopril on hold evaluation to date: renal ultrasound noted -- may need MRI when more stable given findings (can be done as an outpatient) urine eosinophil rare but this could represent inflammation urine electrolytes non-prerenal CPK low moderate proteinuria hold lisinopril follow repeat labs and UOP (2) Chronic kidney disease, stage IV (severe): Code(s): N18.4 - Chronic kidney disease, stage 4 (severe) Status: Chronic Assessment and Plan: baseline creatinine seems to run ~ 1.9 - 2.3mg/dl in the last year this causes him to fluctuate between CKD stage 3B and stage 4 last outpatient creatinine about a week ago was 2.21mg/dl (GFR 29) CKD likely secondary to HTN, diabetes, vascular disease, and age-related change follows with [facility] (3) Bacteremia: Code(s): R78.81 - Bacteremia Status: Acute Assessment and Plan: blood culture with E. coli urinary source?? admission UA suggestive of infection unfortunately, urine culture never done on antibiotics follow repeat cultures (so far negative) (4) Acute respiratory failure with hypoxia: Code(s): J96.01 - Acute respiratory failure with hypoxia Status: Acute Assessment and Plan: clinical improvement noted multifactorial etiology: pneumonia COPD CHF (?) early sepsis (?) continue supplemental oxygen PRN bronchodilator therapy follow respiratory status closely (5) Community acquired pneumonia: Code(s): J18.9 - Pneumonia, unspecified organism Status: Acute Assessment and Plan: as noted by imaging studies on admission follow culture data on antibiotics (6) Chronic obstructive pulmonary disease: Code(s): J44.9 - Chronic obstructive pulmonary disease, unspecified Status: Acute Assessment and Plan: complicates #4 and #5 already on bronchodilators continue supportive therapy (7) Hypertension: Code(s): I10 - Essential (primary) hypertension Status: Chronic Assessment and Plan: reasonable control at this time off LUCIANO-I due to #1 follow trend of hemodynamics (8) Type 2 diabetes mellitus: Code(s): E11.9 - Type 2 diabetes mellitus without complications Status: Chronic Assessment and Plan: follow accu-cheks glycemic control per hospitalists Will continue to follow Subjective Date/time seen: 07/29/23 10:20 Interval history: Follow-up for acute kidney injury/acute renal failure on chronic kidney disease. Continues to make slow and steady improvement in general; breathing/respiratory status continue to slowly improve with current therapy; renal function about the same and continues to make reasonable urine output; no issues/events overnight or earlier this morning. Exam Narrative: General: elderly but WD/WN male in NAD Heart: normal S1 and S2; no rub Lungs: diminished throughout with a few wheezes noted Abdomen: soft, nontender, nondistended, positive bowel sounds Extremities: no cyanosis or clubbing; no edema Skin: warm and intact Objective Data Vital Signs Vital Signs: Vital Signs Temp Pulse Resp BP Pulse Ox O2 Del Method 07/29/23 09:13 70 07/29/23 08:59 98 Room Air 07/29/23 08:00 95.8 F L 68 20 124/52 L 96 07/29/23 04:00 63 07/29/23 00:00 57 L 07/28/23 20:00 72 07/29/23 04:00 96.7 F L 55 L 18 138/44 L 97
--- NOTE | 2023-07-29 10:20 | P.PNNP_ITS ---
Progress Note: A&P Assessment and Plan (1) ALEA (acute kidney injury): Code(s): N17.9 - Acute kidney failure, unspecified Status: Acute Assessment and Plan: * suspect due to several issues: * relative hypotension on admission * infection/early sepsis (pneumonia + bacteremia) * hypoxia * contrast exposure (although creatinine was already elevated prior to this intervention) * LUCIANO-I + diuretic use prior to admission * IV diuretic use (for presumed element of CHF) * lisinopril on hold * evaluation to date: * renal ultrasound noted -- may need MRI when more stable given findings (can be done as an outpatient) * urine eosinophil rare but this could represent inflammation * urine electrolytes non-prerenal * CPK low * moderate proteinuria * hold lisinopril * follow repeat labs and UOP (2) Chronic kidney disease, stage IV (severe): Code(s): N18.4 - Chronic kidney disease, stage 4 (severe) Status: Chronic Assessment and Plan: * baseline creatinine seems to run ~ 1.9 - 2.3mg/dl in the last year * this causes him to fluctuate between CKD stage 3B and stage 4 * last outpatient creatinine about a week ago was 2.21mg/dl (GFR 29) * CKD likely secondary to HTN, diabetes, vascular disease, and age-related change * follows with [facility] (3) Bacteremia: Code(s): R78.81 - Bacteremia Status: Acute Assessment and Plan: * blood culture with E. coli * urinary source?? * admission UA suggestive of infection * unfortunately, urine culture never done * on antibiotics * follow repeat cultures (so far negative) (4) Acute respiratory failure with hypoxia: Code(s): J96.01 - Acute respiratory failure with hypoxia Status: Acute Assessment and Plan: * clinical improvement noted * multifactorial etiology: * pneumonia * COPD * CHF (?) * early sepsis (?) * continue supplemental oxygen PRN * bronchodilator therapy * follow respiratory status closely (5) Community acquired pneumonia: Code(s): J18.9 - Pneumonia, unspecified organism Status: Acute Assessment and Plan: * as noted by imaging studies on admission * follow culture data * on antibiotics (6) Chronic obstructive pulmonary disease: Code(s): J44.9 - Chronic obstructive pulmonary disease, unspecified Status: Acute Assessment and Plan: * complicates #4 and #5 * already on bronchodilators * continue supportive therapy (7) Hypertension: Code(s): I10 - Essential (primary) hypertension Status: Chronic Assessment and Plan: * reasonable control at this time * off LUCIANO-I due to #1 * follow trend of hemodynamics (8) Type 2 diabetes mellitus: Code(s): E11.9 - Type 2 diabetes mellitus without complications Status: Chronic Assessment and Plan: * follow accu-cheks * glycemic control per hospitalists Will continue to follow Subjective Date/time seen: 07/29/23 10:20 Interval history: Follow-up for acute kidney injury/acute renal failure on chronic kidney disease. Continues to make slow and steady improvement in general; breathing/respiratory status continue to slowly improve with current therapy; renal function about the same and continues to make reasonable urine output; no issues/events overnight or earlier this morning. Exam Narrative: General: elderly but WD/WN male in NAD
[2023-07-29 11:58] LABS: Glucose Point of Care 96 mg/dl (65-105)
--- NOTE | 2023-07-29 15:18 | PM.PNCARD ---
Progress Note: A&P Assessment and Plan (1) Elevated troponin: Code(s): R79.89 - Other specified abnormal findings of blood chemistry Status: Acute Assessment and Plan: Troponin elevation with trend suggestive of possible myocardial ischemia, however, patient did not present with ischemic symptoms side from significant hypoxia, acute on chronic kidney injury, and relative hypotension for which he received IV fluids. Suspect type 2 infarction demand ischemia. -continue aspirin 81 mg daily, pravastatin 20 mg at bedtime. Outpatient Lexiscan nuclear stress test in our office after discharge as discussed. 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 Will see patient on an as-needed basis. Please do not hesitate to contact me additional questions or concerns. (2) Community acquired pneumonia: Code(s): J18.9 - Pneumonia, unspecified organism Status: Acute Assessment and Plan: Management per primary service. Improving, weaned to room air. Continue IV antibiotics and bronchodilator therapy. He remains on ceftriaxone IV as well as azithromycin. Transition to oral antibiotics when appropriate. (3) Acute respiratory failure with hypoxia: Code(s): J96.01 - Acute respiratory failure with hypoxia Status: Acute Assessment and Plan: He has been weaned to room air. Bronchodilator therapy as appropriate. Continue to hold off on diuretic therapy. Patient is not decompensated heart failure present. (4) A-fib: Code(s): I48.91 - Unspecified atrial fibrillation Status: Acute Assessment and Plan: Patient initially in AFib currently in sinus rhythm after admission. He has not been on systemic anticoagulation due to history of GI bleed. Outpatient consideration for left atrial appendage occlusion device will be warranted. May Initiate aspirin 81 mg daily as tolerated as he reports he has been taking in the past without difficulty. Monitor reading closely. Nonetheless I suspect he may be able to resume systemic anticoagulation, however, further workup with commentary by GI would be preferable given his history. Continue carvedilol 25 mg twice daily as BP tolerates. Patient remains off systemic anticoagulation and is at significant risk for embolic stroke secondary to paroxysmal atrial fibrillation and should be anticoagulated if possible. If deemed appropriate by primary medicine service may consider Eliquis 2.5 mg twice daily. In that case would recommend discontinuation of aspirin to reduce bleeding risk. Will defer appropriate timing in this regard to the primary service. (5) Acute on chronic renal failure: Code(s): N17.9 - Acute kidney failure, unspecified; N18.9 - Chronic kidney disease, unspecified Status: Acute Assessment and Plan: Minimize nephrotoxic agents. Nephrology consultation noted. Appreciate their involvement. Holding LUCIANO. Monitor BP and renal function. (6) Aortic stenosis: Code(s): I35.0 - Nonrheumatic aortic (valve) stenosis Status: Acute Assessment and Plan: Exam suggestive of least moderate aortic stenosis. Echo shows moderate to severe aortic valve stenosis with a peak velocity of 304.01 cm/s, mean gradient of 19 mmHg, and aortic valve area of 0.93 cm2. Outpatient surveillance. Subjective Date/time seen: 07/29/23 15:18 Interval history: Cardiology follow up for elevated troponin Date of service 07/29/2023: He is feeling better today. [place] some dizziness earlier this afternoon but is feeling better now. Denies shortness of breath, chest pain, palpitations. Tele: atrial fibrillation with intermittent bigeminy and trigeminy, rate 60-70's generally. Review of Systems Review of Systems: Remainder of the review of systems is otherwise negative aside from that noted in the HPI. All systems reviewed &
--- NOTE | 2023-07-29 15:20 | PHAR ---
Pharmacy verified home med: * Use from home * Abiraterone [Zytiga] 250 mg tablet - take 4 tablets by mouth once daily. Do not eat anything for at least 2 hours before and for at least 1 hour after.
[2023-07-29 16:54] LABS: Glucose Point of Care 104 mg/dl (65-105)
[2023-07-29] MEDS: predniSONE 5 MG TABLET PO ×2 (17:00→21:08)
--- NOTE | 2023-07-29 17:30 | PC.NURSE ---
Placed pt zytiga (home med) and timolol in locked pt middle closet.
--- NOTE | 2023-07-29 17:45 | PC.NURSE ---
Addendum entered by Liam Sousa RN 07/29/23 17:47: This episode occured at 1210. Original Note: Pt had episode of tachypnea (R 24, 02 97), and lightheadedness. Pt encouraged to slow down breathing, in nose and out mouth. Pt rechecked 10 minutes later and states he feels much better. Glucose soft at 96. Held lunch insulin. Provider made aware, but no decision made on future insulin orders
[2023-07-29 19:47] LABS: Glucose Point of Care 209 mg/dl (65-105)
[2023-07-29 23:59] LABS: Glucose Point of Care 242 mg/dl (65-105)
[2023-07-30] VITALS (13 sets, daily range): BP systolic 121–164; BP diastolic 62–88; PULSE 60–74; RESP 16–20; TEMP 36–36.9; O2SAT 96–98
[2023-07-30 06:32] LABS: Hematocrit 36.9 % (42.0-52.0); Hemoglobin 11.6 g/dL (14.0-18.0); Mean Corpuscular HGB Conc 31.4 g/dl (32-36); Mean Corpuscular Hemoglobin 28.7 pg (26-34); Mean Corpuscular Volume 91.3 fl (80-100); Platelet Count Result 314 k/mm3 (150-375); Red Blood Count 4.04 M/mm3 (4.6-6.20); Red Cell Distribution Width 13.3 % (11.5-14.5); White Blood Count 8.6 K/mm3 (4.5-10.0)
[2023-07-30 06:46] LABS: Alanine Aminotransferase 15 U/L (6-50); Albumin Level 3.6 g/dL (3.5-5.1); Alkaline Phosphatase 104 U/L (38-126); Anion Gap 6 mmol/L (4-12); Aspartate Amino Transferase 18 U/L (17-59); Bilirubin,Total 0.6 mg/dL (0.2-1.3); Blood Urea Nitrogen 65 mg/dL (9-20); Carbon Dioxide 23 mmol/L (22-30); Chloride 106 mmol/L (98-107); Estimated CRCL calculation 26 ml/min; Estimated Glomerular Filt Rate 26; Glucose 205 mg/dL (65-110); Magnesium 1.9 mg/dL (1.6-2.3); Potassium 4.3 mmol/L (3.4-5.0); Sodium 135 mmol/L (137-145)
[2023-07-30 07:55] LABS: Glucose Point of Care 189 mg/dl (65-105)
--- NOTE | 2023-07-30 08:07 | PM.IMPN ---
Progress Note: A&P Assessment and Plan (1) Chronic obstructive pulmonary disease: Code(s): J44.9 - Chronic obstructive pulmonary disease, unspecified Status: Acute (2) Paroxysmal atrial fibrillation: Code(s): I48.0 - Paroxysmal atrial fibrillation Status: Acute (3) Gastroesophageal reflux disease: Code(s): K21.9 - Gastro-esophageal reflux disease without esophagitis Status: Acute (4) Hyperlipidemia: Code(s): E78.5 - Hyperlipidemia, unspecified Status: Acute (5) Hypertension: Code(s): I10 - Essential (primary) hypertension Status: Acute (6) Type 2 diabetes mellitus: Code(s): E11.9 - Type 2 diabetes mellitus without complications Status: Acute (7) COPD exacerbation: Code(s): J44.1 - Chronic obstructive pulmonary disease with (acute) exacerbation Status: Acute (8) Acute respiratory failure with hypoxia: Code(s): J96.01 - Acute respiratory failure with hypoxia Status: Acute (9) Community acquired pneumonia: Code(s): J18.9 - Pneumonia, unspecified organism Status: Acute (10) Elevated troponin: Code(s): R79.89 - Other specified abnormal findings of blood chemistry Status: Acute (11) Pulmonary edema: Qualifiers: Chronicity: acute Qualified Code(s): J81.0 - Acute pulmonary edema Code(s): J81.1 - Chronic pulmonary edema Status: Acute (12) Acute on chronic renal failure: Code(s): N17.9 - Acute kidney failure, unspecified; N18.9 - Chronic kidney disease, unspecified Status: Acute (13) Non-STEMI (non-ST elevated myocardial infarction): Code(s): I21.4 - Non-ST elevation (NSTEMI) myocardial infarction Status: Acute (14) ALEA (acute kidney injury): Code(s): N17.9 - Acute kidney failure, unspecified Status: Acute (15) Chronic kidney disease, stage 3: Code(s): N18.30 - Chronic kidney disease, stage 3 unspecified Status: Acute (16) Bacteremia: Code(s): R78.81 - Bacteremia Status: Acute Plan 82-year-old male with PMH obesity, prior tobacco abuse, active marijuana abuse, COPD, prostate cancer metastatic to the bone status post chemotherapy, paroxysmal AFib (f/u with business center attendant at [facility]), hyperlipidemia, hypertension, insulin-dependent diabetes mellitus, peptic ulcer disease, GERD, CKD stage 3 presenting with shortness of breath.?? Acute respiratory failure multifocal secondary to pneumonia, COPD, and CHF exacerbation+Sepsis: Hypoxia has resolved CT chest showed ground-glass opacity/mild edema, atypical pneumonia Blood cultures positive for Gram-negative rods Will obtain another set of blood culture Blood pressure is stable Continue with bronchodilators Will switch to cefepime instead of ceftriaxone Continue with bronchodilators Await echocardiogram Await urine strep, Legionella antigen Elevated BNP, concern for heart failure echocardiogram ? 1. Left ventricular chamber dimension is normal. ? 2. Left ventricular systolic function is normal, estimated at 60-65%. ? 3. There is mildly increased left ventricular wall thickness. ? 4. The left ventricular diastolic function is grade I diastolic dysfunction. ? 5. Right ventricular systolic function is normal. ? 6. There is moderate-severe aortic valve calcification. ? 7. There is moderate to severe aortic valve stenosis with a peak velocity of 304.01 cm/s, mean gradient of 19 mmHg, and aortic valve area of 0.93 cm2. now acute respiratory failure has resolved, patient is on room air 2. NSTEMI: Could be possible NSTEMI versus troponin elevation Appreciate cardiology help Await echocardiogram Continue with aspirin, pravastatin Plan for outpatient stress test once gets discharged 07/28 telemetry showed frequent PVCs potassium 3.4, follow magnesium level, provide potassium chloride 40 mg p.o. business center attendant on board, follow recommendation 3. History of AFib: start Eliquis 2.5
[2023-07-30] MEDS: CEFEPIME 1 GM/NS 50 ML 1 GM/50 ML BAG IVPB ×2 (09:23→20:49)
[2023-07-30] MEDS: AZITHROMYCIN 500 MG/NS 250 ML 500 MG/250 ML BAG 250 MG IVPB (09:25)
[2023-07-30] MEDS: ENOXAPARIN 30 MG/0.3 ML SYRINGE SUB-Q (09:28)
[2023-07-30] MEDS: carvediloL 12.5 MG TABLET 25 MG PO ×2 (09:29→20:49)
[2023-07-30] MEDS: guaiFENesin 12 HR 600 MG TABCR 1200 MG PO ×2 (09:30→20:49)
[2023-07-30] MEDS: amLODIPine BESYLATE 2.5 MG TABLET PO (09:30)
[2023-07-30] MEDS: predniSONE 5 MG TABLET PO ×2 (09:30→20:49)
[2023-07-30] MEDS: PANTOPRAZOLE 40 MG TABLET PO (09:30)
[2023-07-30] MEDS: TIMOLOL MALEATE XE 0.5% OPHTH GEL SOLN 5 ML BTL 1 DROP EACH EYE ×2 (09:32→18:50)
--- NOTE | 2023-07-30 11:47 | PM.PNNEP ---
Progress Note: A&P Assessment and Plan (1) ALEA (acute kidney injury): Code(s): N17.9 - Acute kidney failure, unspecified Status: Acute Assessment and Plan: suspect due to several issues: relative hypotension on admission infection/early sepsis (pneumonia + bacteremia) hypoxia contrast exposure (although creatinine was already elevated prior to this intervention) LUCIANO-I + diuretic use prior to admission IV diuretic use (for presumed element of CHF) lisinopril on hold evaluation to date: renal ultrasound noted -- may need MRI when more stable given findings (can be done as an outpatient) urine eosinophil rare but this could represent inflammation urine electrolytes non-prerenal CPK low moderate proteinuria follow repeat labs and UOP (2) Chronic kidney disease, stage IV (severe): Code(s): N18.4 - Chronic kidney disease, stage 4 (severe) Status: Chronic Assessment and Plan: baseline creatinine seems to run ~ 1.9 - 2.3mg/dl in the last year this causes him to fluctuate between CKD stage 3B and stage 4 last outpatient creatinine about a week ago was 2.21mg/dl (GFR 29) CKD likely secondary to HTN, diabetes, vascular disease, and age-related change follows with [facility] (3) Bacteremia: Code(s): R78.81 - Bacteremia Status: Acute Assessment and Plan: blood culture with E. coli urinary source?? admission UA suggestive of infection unfortunately, urine culture never done on antibiotics follow repeat cultures (so far negative) (4) Acute respiratory failure with hypoxia: Code(s): J96.01 - Acute respiratory failure with hypoxia Status: Acute Assessment and Plan: clinical improvement noted multifactorial etiology: pneumonia COPD CHF (?) early sepsis (?) continue supplemental oxygen PRN bronchodilator therapy follow respiratory status closely (5) Community acquired pneumonia: Code(s): J18.9 - Pneumonia, unspecified organism Status: Acute Assessment and Plan: as noted by imaging studies on admission follow culture data on antibiotics (6) Chronic obstructive pulmonary disease: Code(s): J44.9 - Chronic obstructive pulmonary disease, unspecified Status: Acute Assessment and Plan: complicates #4 and #5 already on bronchodilators continue supportive therapy (7) Hypertension: Code(s): I10 - Essential (primary) hypertension Status: Chronic Assessment and Plan: reasonable control at this time follow trend of hemodynamics (8) Type 2 diabetes mellitus: Code(s): E11.9 - Type 2 diabetes mellitus without complications Status: Chronic Assessment and Plan: follow accu-cheks glycemic control per hospitalists Not opposed to discharge tomorrow from renal perspective if creatinine continues to improve and he is otherwise medically stable; he can follow-up with [facility] for ongoing CKD management. Will continue to follow Subjective Date/time seen: 07/30/23 11:47 Interval history: Follow-up for acute kidney injury/acute renal failure on chronic kidney disease. Renal function improving as noted by AM labs in association with good urine output; tolerating antibiotic therapy and repeat blood cultures negative to date; no apparent distress noted; anxious for discharge. Exam Narrative: General: elderly but WD/WN male in NAD Heart: normal S1 and S2; no rub Lungs: diminished throughout with a few wheezes noted Abdomen: soft, nontender, nondistended, positive bowel sounds Extremities: no cyanosis or clubbing; no edema Skin: no rash or nodules Objective Data Vital Signs Vital Signs: Vital Signs Temp Pulse Resp BP Pulse Ox O2 Del Method FiO2 07/30/23 11:44 97.7 F 60 20 145/74 H 98 07/30/23 10:51 97 Room Air 21 07/30/23 09:29 60 07/30/23 08:00
--- NOTE | 2023-07-30 11:47 | P.PNNP_ITS ---
Progress Note: A&P Assessment and Plan (1) ALEA (acute kidney injury): Code(s): N17.9 - Acute kidney failure, unspecified Status: Acute Assessment and Plan: * suspect due to several issues: * relative hypotension on admission * infection/early sepsis (pneumonia + bacteremia) * hypoxia * contrast exposure (although creatinine was already elevated prior to this intervention) * LUCIANO-I + diuretic use prior to admission * IV diuretic use (for presumed element of CHF) * lisinopril on hold * evaluation to date: * renal ultrasound noted -- may need MRI when more stable given findings (can be done as an outpatient) * urine eosinophil rare but this could represent inflammation * urine electrolytes non-prerenal * CPK low * moderate proteinuria * follow repeat labs and UOP (2) Chronic kidney disease, stage IV (severe): Code(s): N18.4 - Chronic kidney disease, stage 4 (severe) Status: Chronic Assessment and Plan: * baseline creatinine seems to run ~ 1.9 - 2.3mg/dl in the last year * this causes him to fluctuate between CKD stage 3B and stage 4 * last outpatient creatinine about a week ago was 2.21mg/dl (GFR 29) * CKD likely secondary to HTN, diabetes, vascular disease, and age-related change * follows with [facility] (3) Bacteremia: Code(s): R78.81 - Bacteremia Status: Acute Assessment and Plan: * blood culture with E. coli * urinary source?? * admission UA suggestive of infection * unfortunately, urine culture never done * on antibiotics * follow repeat cultures (so far negative) (4) Acute respiratory failure with hypoxia: Code(s): J96.01 - Acute respiratory failure with hypoxia Status: Acute Assessment and Plan: * clinical improvement noted * multifactorial etiology: * pneumonia * COPD * CHF (?) * early sepsis (?) * continue supplemental oxygen PRN * bronchodilator therapy * follow respiratory status closely (5) Community acquired pneumonia: Code(s): J18.9 - Pneumonia, unspecified organism Status: Acute Assessment and Plan: * as noted by imaging studies on admission * follow culture data * on antibiotics (6) Chronic obstructive pulmonary disease: Code(s): J44.9 - Chronic obstructive pulmonary disease, unspecified Status: Acute Assessment and Plan: * complicates #4 and #5 * already on bronchodilators * continue supportive therapy (7) Hypertension: Code(s): I10 - Essential (primary) hypertension Status: Chronic Assessment and Plan: * reasonable control at this time * follow trend of hemodynamics (8) Type 2 diabetes mellitus: Code(s): E11.9 - Type 2 diabetes mellitus without complications Status: Chronic Assessment and Plan: * follow accu-cheks * glycemic control per hospitalists Not opposed to discharge tomorrow from renal perspective if creatinine continues to improve and he is otherwise medically stable; he can follow-up with [facility] for ongoing CKD management. Will continue to follow Subjective Date/time seen: 07/30/23 11:47 Interval history: Follow-up for acute kidney injury/acute renal failure on chronic kidney disease. Renal function improving as noted by AM labs in association with good urine output; tolerating antibiotic therapy and repeat blood cultures negative to date; no apparent distress noted; anxious for discharge.
[2023-07-30 11:50] LABS: Glucose Point of Care 215 mg/dl (65-105)
[2023-07-30] MEDS: INSULIN ASPART (*BKC) 100 UNITS/ML SUB-Q ×3 (13:08→20:48)
[2023-07-30 13:10] LABS: Toxigenic C. Diff NEGATIVE (NEGATIVE)
[2023-07-30] MEDS: SODIUM CHLORIDE 0.9% IV 1,000 ML 75 ML IV CONT (15:08)
[2023-07-30 17:01] LABS: Glucose Point of Care 244 mg/dl (65-105)
[2023-07-30 17:08] LABS: Pneumococcal Antigen Urine NOT DETECTED
[2023-07-30 20:44] LABS: Glucose Point of Care 229 mg/dl (65-105)
[2023-07-30] MEDS: INSULIN GLARGINE (*BKC) 100 UNITS/ML 26 UNITS SUB-Q (20:48)
[2023-07-30] MEDS: APIXABAN 2.5 MG TABLET PO (20:49)
[2023-07-30 21:38] LABS: Legionella pneumophila Ag Ur NOT DETECTED
[2023-07-31] VITALS: PULSE 64
[2023-07-31] MEDS: SODIUM CHLORIDE 0.9% IV 1,000 ML 75 ML IV CONT (04:37)
[2023-07-31 05:12] VITALS: BP 143/63; PULSE 57; RESP 16; TEMP 37.2; O2SAT 99
[2023-07-31 06:53] LABS: Hematocrit 38.1 % (42.0-52.0); Mean Corpuscular HGB Conc 31.5 g/dl (32-36); Mean Corpuscular Hemoglobin 28.8 pg (26-34); Mean Corpuscular Volume 91.6 fl (80-100); Mean Platelet Volume 10.1 fl (7.4-10.4); Platelet Count Result 341 k/mm3 (150-375); Red Blood Count 4.16 M/mm3 (4.6-6.20); Red Cell Distribution Width 13.4 % (11.5-14.5); White Blood Count 8.7 K/mm3 (4.5-10.0)
[2023-07-31 07:17] LABS: Alanine Aminotransferase 17 U/L (6-50); Albumin Level 3.8 g/dL (3.5-5.1); Alkaline Phosphatase 105 U/L (38-126); Anion Gap 7 mmol/L (4-12); Aspartate Amino Transferase 16 U/L (17-59); Bilirubin,Total 0.6 mg/dL (0.2-1.3); Blood Urea Nitrogen 51 mg/dL (9-20); Carbon Dioxide 25 mmol/L (22-30); Chloride 105 mmol/L (98-107); Estimated CRCL calculation 26 ml/min; Estimated Glomerular Filt Rate 30; Glucose 171 mg/dL (65-110); Magnesium 1.7 mg/dL (1.6-2.3); Sodium 137 mmol/L (137-145)
[2023-07-31 07:41] LABS: Glucose Point of Care 162 mg/dl (65-105)
[2023-07-31] MEDS: APIXABAN 2.5 MG TABLET PO (09:22)
[2023-07-31] MEDS: predniSONE 5 MG TABLET PO (09:22)
[2023-07-31] MEDS: PANTOPRAZOLE 40 MG TABLET PO (09:22)
[2023-07-31] MEDS: guaiFENesin 12 HR 600 MG TABCR 1200 MG PO (09:22)
--- NOTE | 2023-07-31 09:23 | PM.IMPN ---
Progress Note: A&P Assessment and Plan (1) Chronic obstructive pulmonary disease: Code(s): J44.9 - Chronic obstructive pulmonary disease, unspecified Status: Acute (2) Paroxysmal atrial fibrillation: Code(s): I48.0 - Paroxysmal atrial fibrillation Status: Acute (3) Gastroesophageal reflux disease: Code(s): K21.9 - Gastro-esophageal reflux disease without esophagitis Status: Acute (4) Hyperlipidemia: Code(s): E78.5 - Hyperlipidemia, unspecified Status: Acute (5) Hypertension: Code(s): I10 - Essential (primary) hypertension Status: Chronic (6) Type 2 diabetes mellitus: Code(s): E11.9 - Type 2 diabetes mellitus without complications Status: Chronic (7) COPD exacerbation: Code(s): J44.1 - Chronic obstructive pulmonary disease with (acute) exacerbation Status: Acute (8) Acute respiratory failure with hypoxia: Code(s): J96.01 - Acute respiratory failure with hypoxia Status: Acute (9) Community acquired pneumonia: Code(s): J18.9 - Pneumonia, unspecified organism Status: Acute (10) Elevated troponin: Code(s): R79.89 - Other specified abnormal findings of blood chemistry Status: Acute (11) Pulmonary edema: Qualifiers: Chronicity: acute Qualified Code(s): J81.0 - Acute pulmonary edema Code(s): J81.1 - Chronic pulmonary edema Status: Acute (12) Acute on chronic renal failure: Code(s): N17.9 - Acute kidney failure, unspecified; N18.9 - Chronic kidney disease, unspecified Status: Acute (13) Non-STEMI (non-ST elevated myocardial infarction): Code(s): I21.4 - Non-ST elevation (NSTEMI) myocardial infarction Status: Acute (14) ALEA (acute kidney injury): Code(s): N17.9 - Acute kidney failure, unspecified Status: Acute (15) Chronic kidney disease, stage 3: Code(s): N18.30 - Chronic kidney disease, stage 3 unspecified Status: Acute (16) Bacteremia: Code(s): R78.81 - Bacteremia Status: Acute Plan 82-year-old male with PMH obesity, prior tobacco abuse, active marijuana abuse, COPD, 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 Acute respiratory failure multifocal secondary to pneumonia, COPD, and CHF exacerbation+Sepsis: Hypoxia has resolved CT chest showed ground-glass opacity/mild edema, atypical pneumonia Blood cultures positive for E coli 07/25 repeated set of blood culture Blood pressure is stable 07/27: no growth Continue with bronchodilators switched to cefepime instead of ceftriaxone Continue with bronchodilators echocardiogram urine strep, Legionella antigen -ve Elevated BNP, concern for heart failure echocardiogram ? 1. Left ventricular chamber dimension is normal. ? 2. Left ventricular systolic function is normal, estimated at 60-65%. ? 3. There is mildly increased left ventricular wall thickness. ? 4. The left ventricular diastolic function is grade I diastolic dysfunction. ? 5. Right ventricular systolic function is normal. ? 6. There is moderate-severe aortic valve calcification. ? 7. There is moderate to severe aortic valve stenosis with a peak velocity of 304.01 cm/s, mean gradient of 19 mmHg, and aortic valve area of 0.93 cm2. now acute respiratory failure has resolved, patient is on room air change to oral Levaquin at discharge 2. NSTEMI: Could be possible NSTEMI versus troponin elevation Appreciate cardiology help Await echocardiogram Continue with aspirin, pravastatin Plan for outpatient stress test once gets discharged 07/28 telemetry showed frequent PVCs potassium 3.4, follow magnesium level, provide potassium chloride 40 mg p.o. business continuity planner on board, follow recommendation 3. H
[2023-07-31 09:24] VITALS: PULSE 73
[2023-07-31] MEDS: carvediloL 12.5 MG TABLET 25 MG PO (09:24)
[2023-07-31] MEDS: TIMOLOL MALEATE XE 0.5% OPHTH GEL SOLN 5 ML BTL 1 DROP EACH EYE (09:25)
[2023-07-31] MEDS: amLODIPine BESYLATE 2.5 MG TABLET PO (09:25)
--- NOTE | 2023-07-31 09:34 | PM.DS ---
DS: Admitting Diagnosis Discharge Date 07/30 Admitting Diagnosis (1) Chronic obstructive pulmonary disease: ?Code(s): J44.9 - Chronic obstructive pulmonary disease, unspecified ?Status:?Acute (2) Paroxysmal atrial fibrillation: ?Code(s): I48.0 - Paroxysmal atrial fibrillation ?Status:?Acute (3) Gastroesophageal reflux disease: ?Code(s): K21.9 - Gastro-esophageal reflux disease without esophagitis ?Status:?Acute (4) Hyperlipidemia: ?Code(s): E78.5 - Hyperlipidemia, unspecified ?Status:?Acute (5) Hypertension: ?Code(s): I10 - Essential (primary) hypertension ?Status:?Chronic (6) Type 2 diabetes mellitus: ?Code(s): E11.9 - Type 2 diabetes mellitus without complications ?Status:?Chronic (7) COPD exacerbation: ?Code(s): J44.1 - Chronic obstructive pulmonary disease with (acute) exacerbation ?Status:?Acute (8) Acute respiratory failure with hypoxia: ?Code(s): J96.01 - Acute respiratory failure with hypoxia ?Status:?Acute (9) Community acquired pneumonia: ?Code(s): J18.9 - Pneumonia, unspecified organism ?Status:?Acute (10) Elevated troponin: ?Code(s): R79.89 - Other specified abnormal findings of blood chemistry ?Status:?Acute (11) Pulmonary edema: ?Qualifiers: ?Chronicity:?acute? Qualified Code(s):?J81.0 - Acute pulmonary edema ?Code(s): J81.1 - Chronic pulmonary edema ?Status:?Acute (12) Acute on chronic renal failure: ?Code(s): N17.9 - Acute kidney failure, unspecified; N18.9 - Chronic kidney disease, unspecified ?Status:?Acute (13) Non-STEMI (non-ST elevated myocardial infarction): ?Code(s): I21.4 - Non-ST elevation (NSTEMI) myocardial infarction ?Status:?Acute (14) ALEA (acute kidney injury): ?Code(s): N17.9 - Acute kidney failure, unspecified ?Status:?Acute (15) Chronic kidney disease, stage 3: ?Code(s): N18.30 - Chronic kidney disease, stage 3 unspecified ?Status:?Acute (16) Bacteremia: ?Code(s): R78.81 - Bacteremia ?Status:?Acute DS: Discharge Diagnosis Discharge Diagnosis (1) Chronic obstructive pulmonary disease: Code(s): J44.9 - Chronic obstructive pulmonary disease, unspecified Status: Acute (2) Paroxysmal atrial fibrillation: Code(s): I48.0 - Paroxysmal atrial fibrillation Status: Acute (3) Gastroesophageal reflux disease: Code(s): K21.9 - Gastro-esophageal reflux disease without esophagitis Status: Acute (4) Hyperlipidemia: Code(s): E78.5 - Hyperlipidemia, unspecified Status: Acute (5) Hypertension: Code(s): I10 - Essential (primary) hypertension Status: Chronic (6) Type 2 diabetes mellitus: Code(s): E11.9 - Type 2 diabetes mellitus without complications Status: Chronic (7) COPD exacerbation: Code(s): J44.1 - Chronic obstructive pulmonary disease with (acute) exacerbation Status: Acute (8) Acute respiratory failure with hypoxia: Code(s): J96.01 - Acute respiratory failure with hypoxia Status: Acute (9) Community acquired pneumonia: Code(s): J18.9 - Pneumonia, unspecified organism Status: Acute (10) Elevated troponin: Code(s): R79.89 - Other specified abnormal findings of blood chemistry Status: Acute (11) Pulmonary edema: Qualifiers: Chronicity: acute Qualified Code(s): J81.0 - Acute pulmonary edema Code(s): J81.1 - Chronic pulmonary edema Status: Acute (12) Acute on chronic renal failure: Code(s): N17.9 - Acute kidney failure, unspecified; N18.9 - Chronic kidney disease, unspecified Status: Acute (13) Non-STEMI (non-ST elevated myocardial infarction): Code(s): I21.4 - Non-ST elevation (NSTEMI) myocardial infarction Status: Acute (14) ALEA (acute kidney injury): Code(s): N17.9 - Acute kidney failure, unspecified Status: Acute
[2023-07-31 11:18] VITALS: PULSE 67
[2023-07-31 11:47] LABS: Glucose Point of Care 166 mg/dl (65-105)
[2023-07-31 13:49] VITALS: BP 134/60; PULSE 63; RESP 18; TEMP 36.3; O2SAT 98
--- NOTE | 2023-07-31 14:05 | PC.NURSE ---
RN went over DC with pt at 1300. Pt wasn't DC off the floor until 1405 since he was waiting on spouse to pick him up.
[2023-08-03 21:03] LABS: Mycoplasma IgM Antibody Titer 60 U/mL
== END 2023-07-31 14:05 | disposition home health service (06) | DRG 871 ==
LOC: ANHED 08:09 → ANHIMU 12:25 → ANH3MEDSUR 07-28 17:48
PROVIDERS: General Practice; Internal Medicine Nephrology; Nurse Practitioner Family; Admitting Provider Hospitalist; Emergency Provider Preventive Medicine Aerospace Medicine; PCP Internal Medicine; Visit Provider Hospitalist
DX: A41.9 Sepsis, unspecified organism (principal); I21.4 Non-ST elevation (NSTEMI) myocardial infarction; J18.9 Pneumonia, unspecified organism; J96.01 Acute respiratory failure with hypoxia; J44.1 Chronic obstructive pulmonary disease with (acute) exacerbation; J44.0 Chronic obstructive pulmonary disease with (acute) lower respiratory infection; N17.9 Acute kidney failure, unspecified; I13.0 Hypertensive heart and chronic kidney disease with heart failure and stage 1 through stage 4 chronic kidney disease, or unspecified chronic kidney disease; N18.4 Chronic kidney disease, stage 4 (severe); N39.0 Urinary tract infection, site not specified; B96.20 Unspecified Escherichia coli [E. coli] as the cause of diseases classified elsewhere; I50.9 Heart failure, unspecified; I35.0 Nonrheumatic aortic (valve) stenosis; E11.22 Type 2 diabetes mellitus with diabetic chronic kidney disease; E78.5 Hyperlipidemia, unspecified; I48.0 Paroxysmal atrial fibrillation; R79.89 Other specified abnormal findings of blood chemistry; N28.1 Cyst of kidney, acquired; K21.9 Gastro-esophageal reflux disease without esophagitis; Z20.822 Contact with and (suspected) exposure to COVID-19; Z87.891 Personal history of nicotine dependence; Z85.830 Personal history of malignant neoplasm of bone; Z85.46 Personal history of malignant neoplasm of prostate; Z87.11 Personal history of peptic ulcer disease; Z79.4 Long term (current) use of insulin
CPT/HCPCS: 36415; 36600; 71045; 71275; 76775; 80048; 80053; 80061; 81001; 81050; 82550; 82570; 82805; 82948; 83036; 83735; 83880; 84145; 84156; 84300; 84484; 84540; 85025; 85027; 85610; 85730; 85999; 86738; 87040; 87077; 87186; 87449; 87493; 87637; 87899; 93005; 94002; 94003; 94640; 96361; 96365; 99285; A9270; C8929; G0378; J0456; J0692; J0696; J1650; J1815; J1940; J2919; J7030; J7040; J7070; J7512; Q9957; Q9967

== ENCOUNTER 2023-10-25 18:41 | Emergency (ER) | payer MEDICARE, SELFPAY ==
[2023-10-25] VITALS (8 sets, daily range): BP systolic 136–142; BP diastolic 72–88; PULSE 78–90; RESP 15–25; TEMP 36.7; O2SAT 95–100
--- NOTE | ~2023-10-25 | CT_ITS ---
EXAMINATION: CTA chest PE protocol DATE: 10/25/2023 21:40 INDICATION: Shortness of breath. Afib not on AC TECHNIQUE: Computed tomography angiography (CTA) of the chest was performed with 100 mL Omnipaque-350 intravenous contrast timed to evaluate the pulmonary arteries. Coronal maximum intensity projection 3D-reconstructions were created by the technologist. The dose-length product (DLP) was 824.73 mGy-cm. Automated exposure control and iterative reconstruction technique were employed. COMPARISON: 07/26/2023. FINDINGS: Lung parenchyma and airways: Mild emphysematous changes, mild bibasilar scar/atelectasis otherwise cl ear. Minimal aerated secretions in the distal trachea. Pleura: Unremarkable. Thoracic inlet, axillae and chest wall: Unremarkable. Thoracic aorta: No significant dilation. No dissection. Mild arch calcification. Mediastinum: Mildly patulous esophagus with small volume fluid. Heart and pericardium: Aortic valve calcification. Normal heart size. No pericardial effusion. Coronary artery calcifications: Mild. Upper abdomen: No significant finding. Bones: No acute osseous finding. Pulmonary arteries: Study quality: Adequate. No pulmonary emboli detected. IMPRESSION: No CT evidence of acute pulmonary embolus. Minimal tracheal secretions. Patulous esophagus with fluid. Correlate for history of or clinical find ings of reflux and/or aspiration. Otherwise no acute process detected in the chest. Reviewed, dictated and finalized at location K. IMPRESSION: No CT evidence of acute pulmonary embolus. Minimal tracheal secretions. Patulous esophagus with fluid. Correlate for histo ry of or clinical findings of reflux and/or aspiration. Otherwise no acute process detected in the chest.
--- NOTE | ~2023-10-25 | XR_ITS ---
EXAMINATION: XR chest 1V portable Exam Date/Time: 10/25/2023 19:10 CDT HISTORY: SOB Comparison: 07/26/2023. RESULT: Lines, tubes, and devices: None. Lungs and pleura: Clear. Cardiomediastinal silhouette: Stable. Other: No acute osseous or upper abdominal finding. IMPRESSION: No acute cardiopulmonary process. Reviewed, dictated and finalized at location K.
--- NOTE | 2023-10-25 18:52 | ECG_ITS ---
Test Date: 2023-10-25 18:54:10 Measurements Intervals [place] Rate: 82 P: 5 [place]: 227 QRS: 11 QRSD: 88 T: 58 QT: 358 QTc: 420 Interpretive Statements SINUS RHYTHM WITH FIRST DEGREE AV BLOCK DELAYED PRECORDIAL R/S TRANSITION BORDERLINE ST-T WAVE ABNORMALITY- HIGH LATERAL LEADS BASELINE ARTIFACT- AVR, AVL, AVF ABNORMAL ECG No previous ECG available for comparison Electronically Signed On 10-25-2023 19:22:31 CDT by Prashanth Doshi D.O.
[2023-10-25 19:23] LABS: Basophils Percent Auto 0.3 % (0.2-1.2); Eosinophils Absolute Auto 0.2 K/mm3 (0-0.3); Eosinophils Percent Auto 1.3 % (0-4.4); Hematocrit 40.3 % (42.0-52.0); Hemoglobin 13.1 g/dL (14.0-18.0); Immature Granulocyte Percent A 0.8 % (0-0.5); Lymphocytes Absolute Auto 1.48 K/mm3 (0.9-3.2); Lymphocytes Percent Auto 11.6 % (18.3-44.2); Mean Corpuscular HGB Conc 32.5 g/dl (32-36); Mean Corpuscular Hemoglobin 28.9 pg (26-34); Monocytes Absolute Auto 1.3 K/mm3 (0.1-0.6); Monocytes Percent Auto 10.4 % (2.6-8.5); Neutrophils Absolute Auto 9.6 K/mm3 (1.3-6.7); Neutrophils Percent Auto 75.6 % (45.5-73.1); Platelet Count Result 298 k/mm3 (150-375); Red Blood Count 4.53 M/mm3 (4.6-6.20); Red Cell Distribution Width 13.8 % (11.5-14.5); White Blood Count 12.7 K/mm3 (4.5-10.0)
[2023-10-25 19:33] LABS: Alanine Aminotransferase 13 U/L (6-50); Albumin Level 3.9 g/dL (3.5-5.1); Alkaline Phosphatase 128 U/L (38-126); Anion Gap 11 mmol/L (4-12); Aspartate Amino Transferase 18 U/L (17-59); Bilirubin,Total 0.9 mg/dL (0.2-1.3); Blood Urea Nitrogen 44 mg/dL (9-20); Calcium 8.8 mg/dL (8.4-10.2); Carbon Dioxide 23 mmol/L (22-30); Chloride 104 mmol/L (98-107); Estimated CRCL calculation 23 ml/min; Estimated Glomerular Filt Rate 26; Glucose 118 mg/dL (65-110); Potassium 3.9 mmol/L (3.4-5.0); Sodium 138 mmol/L (137-145)
--- NOTE | 2023-10-25 19:45 | PC.NURSE ---
patient ambulated to restroom on RA. checked SpO2 after ambulating, 97% on RA
--- NOTE | 2023-10-25 21:23 | ED.GENADULT ---
HPI - General Adult General Chief complaint: Shortness of Breath/Dyspnea Stated complaint: sob Time Seen by Provider: 10/25/23 18:58 History of Present Illness HPI narrative: This is a 82 male with CHF and COPD presenting with shortness of breath x1 day. Patient has a soft associated upper respiratory congestion.patient denies cough fevers or lower extremity edema. No nausea vomiting or diarrhea. Related Data Home Medications Medication Instructions Recorded Confirmed abiraterone 250 mg tablet (Zytiga) 1,000 mg PO DAILY 06/11/22 07/26/23 amlodipine 2.5 mg tablet (Norvasc) 2.5 mg PO DAILY 06/11/22 07/26/23 carvedilol 12.5 mg tablet 25 mg PO BID 06/11/22 07/26/23 insulin aspart U-100 100 unit/mL See Protocol subcut TID 06/11/22 07/26/23 (3 mL) subcutaneous pen (Novolog FlexPen U-100 Insulin aspart) insulin glargine 100 unit/mL (3 See Rx Instructions .Route .COMPLEX 06/11/22 07/26/23 mL) subcutaneous pen (Lantus Solostar U-100 Insulin) lisinopril 20 mg tablet (Zestril) 30 mg PO DAILY 06/11/22 07/26/23 oxycodone 5 mg tablet 5 mg PO PRN PRN Pain 06/11/22 07/26/23 pantoprazole 40 mg tablet,delayed 40 mg PO DAILY 06/11/22 07/26/23 release pravastatin 20 mg tablet 20 mg PO DAILY 06/11/22 07/26/23 sitagliptin phosphate 25 mg tablet 25 mg PO DAILY 06/11/22 07/26/23 (Januvia) timolol maleate 0.5 % eye gel 1 drp EACH EYE BID 06/11/22 07/26/23 forming solution chlorthalidone 25 mg PO DAILY 06/12/22 07/26/23 Allergies Allergy/AdvReac Type Severity Reaction Status Date / Time No Known Drug Allergies Allergy Unknown Other Verified 10/25/23 18:53 [facility] Past Medical History Medical History Chronic kidney disease, stage 3 Esophageal ulcer Gastroesophageal reflux disease Hyperlipidemia Hypertension Paroxysmal atrial fibrillation 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 Code status: Full code. Years smoked: 62 Smoking status: Current every day smoker Tobacco type: cigarettes Second hand tobacco smoke exposure: Yes Alcohol intake: current Drinks per week: 2 Substance use: current Substance use type: marijuana Last use: 07/22/2023 Do You Feel Safe in your Home?: Yes Lack of Transportation: No Lack of Food: Never True Current Housing: I Have Housing Concerned About Future Housing: No Difficulty Paying Gas/Electric Bills: No Difficulty Paying for Meds: No Currently Unemployed: No Education: Decline to Answer Difficulty w/ Childcare or Family Care: No Additional living arrangements comments: Lives with spouse in [place]. Additional occupation/education comments: Retired. Spiritual care concerns: No Exam Narrative: APPEARANCE: No apparent distress. Head: atraumatic. EYES: EOMI, NOSE: Atraumatic NECK: Trachea midline RESPIRATORY: No increased rate of breathing , clear to auscultation CARDIOVASCULAR: irregular no peripheral edema ABDOMINAL: Non-distended MUSCULOSKELETAl: No obvious deformities NEURO: Alert. Moving 4/4 extremities SKIN:: Warm, dry. Normal color PSYCHIATRIC: Normal affect Course Vital Signs Vital signs: Vital Signs Temperature 98.1 F 10/25/23 18:48 Pulse Rate 82 10/25/23 18:48 Respiratory Rate 15 10/25/23 18:48 Blood Pressure 136/72 10/25/23 18:48 Pulse Oximetry 95 10/25/23 18:48 Oxygen Delivery Room Air 10/25/23 18:48 Temperature 98.1 F 10/25/23 18:48 Pulse Rate
[2023-10-25] MEDS: IPRATROPIUM 0.5 MG/ALBUTEROL SULFATE 2.5 MG AMPUL.NEB 3 ML 6 ML INHALATION (21:39)
--- NOTE | 2023-10-25 23:14 | PC.NURSE ---
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 Pts o2 93-95%
== END 2023-10-25 23:49 | disposition home or self-care (01) ==
PROVIDERS: Emergency Provider Emergency Medicine; PCP Internal Medicine
DX: B34.9 Viral infection, unspecified (principal); F17.210 Nicotine dependence, cigarettes, uncomplicated; I12.9 Hypertensive chronic kidney disease with stage 1 through stage 4 chronic kidney disease, or unspecified chronic kidney disease; E11.22 Type 2 diabetes mellitus with diabetic chronic kidney disease; N18.30 Chronic kidney disease, stage 3 unspecified; Z79.4 Long term (current) use of insulin; I48.91 Unspecified atrial fibrillation; K21.9 Gastro-esophageal reflux disease without esophagitis
CPT/HCPCS: 36415; 71045; 71275; 80053; 85025; 93005; 94640; 99284; Q9967